=== PATIENT | male | born 1960 | race Caucasian/White ===

== ENCOUNTER → 2018-03-21 14:01 | Outpatient (CLI) | payer MEDICAID, SELFPAY ==
[2018-03-21 17:50] LABS: AST(SGOT) 25 U/L (15-37); Alanine Aminotransfer ALT/SGPT 42 U/L (16-61); Albumin, Serum 3.8 g/dL (3.2-5.0); Alkaline Phosphatase 98 U/L (45-117); Anion Gap 9 (5-15); BUN 14 mg/dL (7-18); BUN/Creat Ratio 16.4 RATIO (10-20); Calcium,Total 8.8 mg/dL (8.5-10.1); Chloride 101 mmol/L (98-107); Creatinine, Serum 0.86 mg/dL (0.70-1.30); EST Glomerular Filtration Rate 97 mL/min (>60); Est Glom Filt Rate - Afr Amer 118 mL/min (>60); Glucose 157 mg/dL (74-106); Magnesium 2.1 mg/dL (1.6-2.6); Potassium 4.2 mmol/L (3.5-5.1); Protein, Total 7.8 g/dL (6.4-8.2); Sodium Level 137 mmol/L (136-145); T4 Free Direct 1.12 ng/dL (0.76-1.46)
[2018-03-21 18:29] LABS: Absolute Lymphocyte Count 3.09 X10^3/ul (0.83-4.51); Absolute Neutrophil Count 3.8 X10^3/uL (2.0-7.7); Basophil# 0.02 X10^3/uL; Basophil% 0.3 % (0-1); Eosinophil# 0.12 X10^3/uL; Eosinophils% 1.5 % (0-5); Hematocrit 44.9 % (40-54); Hemoglobin 14.8 g/dl (13.0-16.5); Lymphocyte # 3.09 X10^3/ul (4.0); Lymphocyte % 39.3 % (19-41); Mean Corpuscular Hgb 30.5 pg (27.0-32.0); Mean Corpuscular Volume 92.4 fL (80-94); Mean Platelet Vol. 11.8 fl (6.2-12.0); Monocyte# 0.84 X10^3/uL; Monocyte% 10.7 % (0-10); Neutrophil # 3.75 X10^3/uL (2.7-7.7); Neutrophil % 47.7 % (47-70); Platelet Count 241 K/mm3 (150-450); RBC Distribution Width CV 13.2 % (11.6-14.6); RBC Distribution Width SD 43.9 fl (35.1-43.9); Red Blood Count 4.86 M/mm3 (4.6-6.2); White Blood Count 7.9 K/mm3 (4.4-11.0)
[2018-03-21 18:33] LABS: POSITIVE COUNT NO; POSITIVE DIFFERENTIAL NO; POSITIVE MORPHOLOGY NO
== END ==
PROVIDERS: Family Provider Family Medicine; PCP Family Medicine; Visit Provider Family Medicine
DX: E11.9 Type 2 diabetes mellitus without complications (principal); I10 Essential (primary) hypertension; I48.91 Unspecified atrial fibrillation
CPT/HCPCS: 36415; 80053; 83735; 84439; 84443; 85025

== ENCOUNTER → 2019-03-25 10:45 | Outpatient (CLI) | payer MEDICARE, SELFPAY ==
[2018-11-04 08:11] VITALS: BMI 41.3
[2019-03-25 12:34] LABS: Absolute Lymphocyte Count 3.05 X10^3/uL (0.83-4.51); Absolute Neutrophil Count 5.4 X10^3/uL (2.0-7.7); Basophil# 0.08 X10^3/uL; Basophil% 0.8 % (0-1); Eosinophil# 0.18 X10^3/uL; Eosinophils% 1.9 % (0-5); Hematocrit 42.7 % (40-54); Hemoglobin 14.1 g/dL (13.0-16.5); Lymphocyte # 3.05 X10^3/ul (4.0); Lymphocyte % 31.8 % (19-41); Mean Corpuscular Hgb 30.5 pg (27.0-32.0); Mean Corpuscular Volume 92.4 fL (80-94); Mean Platelet Vol. 11.1 fl (6.2-12.0); Monocyte# 0.78 X10^3/uL; Monocyte% 8.1 % (0-10); NRBC Flagged by Analyzer 0 % (0-5); Neutrophil # 5.39 X10^3/uL (2.7-7.7); Neutrophil % 56.3 % (47-70); Platelet Count 267 K/mm3 (150-450); RBC Distribution Width CV 12.2 % (11.6-14.6); RBC Distribution Width SD 41.2 fl (35.1-43.9); Red Blood Count 4.62 M/mm3 (4.6-6.2); White Blood Count 9.6 K/mm3 (4.4-11.0)
[2019-03-25 13:09] LABS: ALB/GLOB Ratio 0.8 RATIO (0.9-2.4); AST(SGOT) 26 U/L (15-37); Alanine Aminotransfer ALT/SGPT 31 U/L (16-61); Albumin, Serum 3.5 g/dL (3.2-5.0); Alkaline Phosphatase 93 U/L (45-117); Anion Gap 4 (5-15); BUN 13 mg/dL (7-18); BUN/Creat Ratio 15.5 RATIO (10-20); Calcium,Total 8.9 mg/dL (8.5-10.1); Chloride 105 mmol/L (98-107); Creatinine, Serum 0.84 mg/dL (0.70-1.30); EST Glomerular Filtration Rate 99 mL/min (>60); Est Glom Filt Rate - Afr Amer 120 mL/min (>60); Globulin 4.4 g/dL (2.2-4.2); Glucose 169 mg/dL (74-106); Protein, Total 7.9 g/dL (6.4-8.2); Sodium Level 138 mmol/L (136-145); Thyroid Stim Hormone (TSH) 1.09 uIU/mL (0.358-3.74)
== END ==
PROVIDERS: Family Provider Family Medicine; PCP Family Medicine; Visit Provider Family Medicine
DX: E11.65 Type 2 diabetes mellitus with hyperglycemia (principal); I10 Essential (primary) hypertension; R41.3 Other amnesia; I48.91 Unspecified atrial fibrillation
CPT/HCPCS: 36415; 80053; 83735; 84439; 84443; 85025

== ENCOUNTER 2019-09-23 11:06 | Emergency (ER) | payer MEDICARE, SELFPAY ==
[2018-11-04 08:11] VITALS: BMI 41.3
[2019-09-23 11:07] VITALS: BP 159/88; PULSE 68; RESP 16; TEMP 37.1; O2SAT 95; BMI 42.2
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
[2019-09-23 12:26] VITALS: PULSE 70; RESP 17
== END 2019-09-23 12:31 | disposition home or self-care (01) ==
PROVIDERS: Emergency Provider Emergency Medicine; PCP Family Medicine
DX: S16.1XXA Strain of muscle, fascia and tendon at neck level, initial encounter (principal); V89.2XXA Person injured in unspecified motor-vehicle accident, traffic, initial encounter; E11.9 Type 2 diabetes mellitus without complications; E78.5 Hyperlipidemia, unspecified; I10 Essential (primary) hypertension; Z87.891 Personal history of nicotine dependence; Z79.899 Other long term (current) drug therapy; Z79.84 Long term (current) use of oral hypoglycemic drugs
CPT/HCPCS: 70450; 72125; 99284

== ENCOUNTER 2020-01-20 22:59 | Emergency (ER) | payer MEDICARE, SELFPAY ==
[2020-01-20 23:00] VITALS: BP 149/87; PULSE 79; RESP 16; TEMP 36.3; O2SAT 96; BMI 38.4
--- NOTE | 2020-01-20 23:31 | EKG12_ITS ---
Test Reason : HYPOTENSION Blood Pressure : / mmHG Vent. Rate : 077 BPM Atrial Rate : 077 BPM P-R Int : 184 ms QRS Dur : 196 ms QT Int : 482 ms P-R-T Axes : 064 027 026 degrees QTc Int : 545 ms Sinus rhythm with Fusion complexes Right bundle branch block Abnormal ECG Confirmed by MP GAMEZ, SOPHIA ([id number]), editor [employer] BRUN[employer] ([id number]) on 01/25/2020 1:31:41 PM Referred By: ANAMARIA Confirmed By:SOPHIA GRESHAM MD
[2020-01-20] MEDS: 0.9% Normal Saline 1,000 ML 1000 ML IV (23:50)
[2020-01-20 23:51] VITALS: BP 123/84; BP 128/82; BP 130/79; PULSE 75; PULSE 77; PULSE 80
--- NOTE | 2020-01-21 | RAD_ITS ---
STUDY: X-RAY CHEST REASON FOR EXAM: Male, 59 years old. PT C/O HYPOTENSION X 14 DAYS AND BALANCE ISSUES. BP SINCE SATURDAY RUNNING 80/50''S. STOPPED BP MEDS TODAY WHEN PCP RN CHECKED BP -- DENIES ANY CHEST PAIN OR SOB TECHNIQUE: Ap and lateral COMPARISON: 12/17/2014. FINDINGS: The lungs are clear and expanded. There is no demonstrated pleural abnormality. Normal size heart. Normal mediastinum and viky. Normal visualized pulmonary arteries. Normal visualized aortic arch and descending thoracic aorta. Normal visualized thoracic spine. Normal visualized ribs, clavicles, and shoulders. There is no demonstrated abnormality of the visualized soft tissue structures of the upper abdomen. RAD/Chest PA and Lateral IMPRESSION: Negative x-ray examination of the chest. No interval change. Electronically Signed: Richar Sheehan, at 0:35 EDT Tel , Service support ,
[2020-01-21 00:04] LABS: Absolute Lymphocyte Count 7.18 X10^3/uL (0.83-4.51); Absolute Neutrophil Count 2.4 X10^3/uL (2.0-7.7); Basophil% 0.9 % (0-1); Eosinophil# 0.04 X10^3/uL; Eosinophils% 0.4 % (0-5); Hematocrit 37.5 % (40-54); Hemoglobin 12.7 g/dL (13.0-16.5); Lymphocyte # 7.18 X10^3/ul (4.0); Lymphocyte % 67.4 % (19-41); Mean Corp Hgb Conc 33.9 g/dL (32-36); Mean Corpuscular Hgb 30.6 pg (27.0-32.0); Mean Corpuscular Volume 90.4 fL (80-94); Mean Platelet Vol. 9.7 fl (6.2-12.0); Monocyte% 7.5 % (0-10); NRBC Flagged by Analyzer 0 % (0-5); Neutrophil # 2.41 X10^3/uL (2.7-7.7); Neutrophil % 22.7 % (47-70); POSITIVE DIFFERENTIAL YES; POSITIVE MORPHOLOGY YES; Platelet Count 256 K/mm3 (150-450); RBC Distribution Width CV 14.6 % (11.6-14.6); Red Blood Count 4.15 M/mm3 (4.6-6.2); White Blood Count 10.7 K/mm3 (4.4-11.0)
[2020-01-21 00:18] LABS: Differential Indicated SCAN CRITERIA MET
[2020-01-21 00:25] LABS: ALB/GLOB Ratio 0.7 RATIO (0.9-2.4); AST(SGOT) 32 U/L (15-37); Alanine Aminotransfer ALT/SGPT 38 U/L (16-61); Alkaline Phosphatase 84 U/L (45-117); Anion Gap 5 (5-15); BUN 14 mg/dL (7-18); BUN/Creat Ratio 15.5 RATIO (10-20); Calcium,Total 8.5 mg/dL (8.5-10.1); Chloride 103 mmol/L (98-107); EST Glomerular Filtration Rate 91 mL/min (>60); Est Glom Filt Rate - Afr Amer 110 mL/min (>60); Estimated Creatinine Clearance 87.28 ml/min; Globulin 4.3 g/dL (2.2-4.2); Glucose 170 mg/dL (74-106); Potassium 4.4 mmol/L (3.5-5.1); Protein, Total 7.3 g/dL (6.4-8.2); Sodium Level 135 mmol/L (136-145)
[2020-01-21 00:46] LABS: Atypical Lymphocyte 2+ %; Differential Comment SCANNED
[2020-01-21 01:00] VITALS: BP 134/82; PULSE 76; RESP 18; O2SAT 95
[2020-01-21 01:00] LABS: Color, Urine Yellow (Yellow); Glucose, Dipstick Normal (Normal); Ketone-Dipstick Negative (Negative); Leukocyte Esterase-Dipstick Negative /ul (Negative); Mucous, Urine 0 SEEN /hpf (<or=2+); Nitrite-Dipstick Negative (Negative); Occult Blood-Urine Negative /ul (Negative); Protein-Dipstick Negative (Negative); Red Blood Cells-Urine 0 SEEN /hpf (0-5); Specific Gravity, Urine 1.015 (1.002-1.030); Squamous Epithelial Cells - UA 0 SEEN /hpf (0-5); Urine Bilirubin Dipstick Negative (Negative); Urine Clarity Clear (Clear); Urine Urobilinogen 4 mg/dl (Normal); White Blood Cells 0 SEEN /hpf (0-5)
[2020-01-21 01:08] LABS: Bacteria RARE /hpf (None Seen)
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
[2020-01-21 03:18] VITALS: BP 120/70; PULSE 74; RESP 20; O2SAT 95
== END 2020-01-21 03:52 | disposition home or self-care (01) ==
PROVIDERS: Emergency Provider Emergency Medicine; PCP Family Medicine
DX: R42 Dizziness and giddiness (principal); R03.1 Nonspecific low blood-pressure reading; I45.10 Unspecified right bundle-branch block; I10 Essential (primary) hypertension; E78.5 Hyperlipidemia, unspecified; E11.9 Type 2 diabetes mellitus without complications
CPT/HCPCS: 71046; 80053; 81001; 84484; 85025; 93005; 96360; 99285; J7030

== ENCOUNTER → 2020-06-27 12:46 | Outpatient (CLI) | payer MEDICARE, SELFPAY ==
[2020-01-27 16:05] VITALS: BMI 39.5
== END ==
PROVIDERS: PCP Family Medicine; Referring Provider Internal Medicine Cardiovascular Disease; Visit Provider Internal Medicine Cardiovascular Disease
DX: I45.10 Unspecified right bundle-branch block (principal); I47.1 Supraventricular tachycardia; I48.0 Paroxysmal atrial fibrillation; R00.2 Palpitations
CPT/HCPCS: 93225; 93226

== ENCOUNTER → 2020-07-06 16:59 | Outpatient (CLI) | payer MEDICARE, SELFPAY ==
[2020-01-27 16:05] VITALS: BMI 39.5
[2020-07-06 17:58] LABS: Absolute Lymphocyte Count 4.29 X10^3/uL (0.83-4.51); Basophil# 0.03 X10^3/uL; Basophil% 0.4 % (0-1); Eosinophil# 0.08 X10^3/uL; Hematocrit 44.5 % (40-54); Hemoglobin 14.9 g/dL (13.0-16.5); Lymphocyte # 4.29 X10^3/ul (4.0); Lymphocyte % 53.1 % (19-41); Mean Corp Hgb Conc 33.5 g/dL (32-36); Mean Corpuscular Hgb 30.4 pg (27.0-32.0); Mean Corpuscular Volume 90.8 fL (80-94); Mean Platelet Vol. 10.6 fl (6.2-12.0); Monocyte# 0.69 X10^3/uL; Monocyte% 8.5 % (0-10); NRBC Flagged by Analyzer 0 % (0-5); Neutrophil # 2.95 X10^3/uL (2.7-7.7); Neutrophil % 36.5 % (47-70); Platelet Count 276 K/mm3 (150-450); RBC Distribution Width CV 12.8 % (11.6-14.6); RBC Distribution Width SD 42.1 fl (35.1-43.9); White Blood Count 8.1 K/mm3 (4.4-11.0)
[2020-07-06 18:50] LABS: AST(SGOT) 24 U/L (15-37); Alanine Aminotransfer ALT/SGPT 38 U/L (16-61); Albumin, Serum 3.9 g/dL (3.2-5.0); Alkaline Phosphatase 87 U/L (45-117); Anion Gap 6 (5-15); BUN 13 mg/dL (7-18); Calcium,Total 9.2 mg/dL (8.5-10.1); Chloride 103 mmol/L (98-107); Creatinine, Serum 0.93 mg/dL (0.70-1.30); EST Glomerular Filtration Rate 88 mL/min (>60); Est Glom Filt Rate - Afr Amer 106 mL/min (>60); Ferritin 143 ng/mL (26-388); Glucose 232 mg/dL (74-106); Iron 120 ug/dL (65-175); Magnesium 1.9 mg/dL (1.6-2.6); Potassium 4.4 mmol/L (3.5-5.1); Protein, Total 7.9 g/dL (6.4-8.2); Sodium Level 138 mmol/L (136-145); Thyroid Stim Hormone (TSH) 1.62 uIU/mL (0.358-3.74)
== END ==
PROVIDERS: PCP Family Medicine; Referring Provider Family Medicine; Visit Provider Family Medicine
DX: F43.23 Adjustment disorder with mixed anxiety and depressed mood (principal); E11.9 Type 2 diabetes mellitus without complications; I10 Essential (primary) hypertension; D64.9 Anemia, unspecified; I49.3 Ventricular premature depolarization
CPT/HCPCS: 36415; 80053; 82728; 83540; 83735; 84443; 85025

== ENCOUNTER → 2020-09-19 06:02 | Outpatient (CLI) | payer MEDICARE, SELFPAY ==
[2020-09-07 14:15] VITALS: BMI 40.4
--- NOTE | 2020-09-19 09:24 | STRESSREP ---
Stress Test Report Exercise myocardial perfusion stress test. 60-year-old man with a history of previous known coronary artery disease. Stress protocol: Resting EKG demonstrates normal sinus rhythm with a rate of 78 bpm and the right bundle branch block. Resting blood pressures 140/88 mmHg. The patient exercised according to the regular Mauro protocol for a total duration of 4 minutes and 30 seconds. The maximum heart rate attained was 144 bpm which was 90% of maximum predicted heart rate the maximum workload was 6.4 metabolic equivalents. Patient maintained sinus rhythm throughout the recording. At rest there were no ST or T wave changes noted to suggest ischemia and at peak exercise upsloping ST changes only were noted which did not meet the criteria for ischemia. Myocardial perfusion protocol. 14.4 mCi of technetium 99m sestamibi was injected at rest. The patient exercised for 4-1/2 minutes and at peak exercise 44.8 mCi of technetium 99m sestamibi was injected stress images were obtained. Stress and rest images were reconstructed and compared in the short axis vertical long and horizontal long axis. Gated images were also obtained. Perfusion SPECT analysis: Review of the stress images demonstrate mild perfusion abnormality noted towards the apex on the stress and the resting images. The resting images similarly demonstrate a perfusion defect. The above may be suggestive of a previous apical infarct. The rest of the trevino appear to be well perfused on the stress and resting images. The gated ejection fraction is 63%. Conclusion: Exercise myocardial perfusion stress test with no evidence of ischemia at a moderate workload. Previous apical infarct cannot be excluded. Preserved ejection fraction
== END ==
PROVIDERS: PCP Family Medicine; Referring Provider Nurse Practitioner Family; Visit Provider Nurse Practitioner Family
DX: R06.00 Dyspnea, unspecified (principal); R53.83 Other fatigue; I48.0 Paroxysmal atrial fibrillation; Z51.81 Encounter for therapeutic drug level monitoring; Z79.899 Other long term (current) drug therapy
CPT/HCPCS: 78452; 93017; A9500; A4216

== ENCOUNTER 2021-02-15 21:57 | Observation (INO) | payer MEDICARE, SELFPAY ==
[2021-02-15 21:58] VITALS: BP 193/103; PULSE 80; RESP 18; TEMP 36.6; O2SAT 96; BMI 38.4
[2021-02-15 22:58] VITALS: BP 172/92; PULSE 75; RESP 19; O2SAT 94
--- NOTE | 2021-02-15 23:03 | EDS_ITS ---
HPI History of Present Illness Chief Complaint: Palpitations Informant: patient and family Narrative Narrative: 60-year-old male with a history of diabetes fibrillation presenting to the emergency department the chief complaint of fatigue. He states that earlier in the day the bottoms of his feet were burning. He states that went away but his heart rate at that time then increased to the 90s and his arms felt heavy. States that he walked down the hallway he would lean towards the right and would run into the wall. Noted a right-sided headache. He was wondering if he was having atrial fibrillation. His 1 year ago and he has not been checking his blood pressures or his sugar since that time. He was seen in the layout technician office in December and noted to be hypertensive. Patient notes that his arms feel significantly heavy. He feels very tired. His son states that his speech seems off compared to normal. Patient and his son cannot tell me when his speech changed. [facility] Medical History Bipolar disorder Chronic coronary artery disease Depression Diabetes Dyspnea on exertion Essential (primary) hypertension Hematuria Hyperlipidemia Obesity Paroxysmal atrial fibrillation Paroxysmal supraventricular tachycardia Right bundle branch block (RBBB) Sebaceous cyst TIA (transient ischemic attack) Home Medications nabumetone 750 mg tablet 750 mg PO DAILY PRN 10/22/17 [History Last Taken Unknown] metformin 500 mg tablet 500 mg PO BID #60 tab 10/28/18 [History Last Taken Unknown] pantoprazole 20 mg PO DAILY 01/20/20 [History Last Taken Unknown] flecainide 150 mg tablet 150 mg PO Q12H #60 tab 07/06/20 [Rx Last Taken Unknown] metoprolol tartrate 50 mg tablet 75 mg PO BID #270 tab 02/06/21 [Rx Last Taken Unknown] Allergy/AdvReac Type Severity Reaction Status Date / Time adhesive tape Allergy Severe Blisters Verified 12/22/20 14:45 meperidine Allergy Unknown Verified 12/22/20 14:45 amitriptyline AdvReac Severe fatigue Verified 12/22/20 14:45 pneumococcal vaccine AdvReac Severe Dizziness, Verified 12/22/20 14:45 [From Pneumovax 23] N/V ketoconazole AdvReac Unknown Unknown Verified 12/22/20 14:45 atorvastatin AdvReac dizzy, Verified 12/22/20 14:45 joint pain pantoprazole AdvReac dizziness Verified 12/22/20 14:45 influenza vacine Allergy Severe Dizziness, Uncoded 01/27/20 16:05 N/V Family History Sister Hypertension Father Cardiomegaly Pericarditis Surgical History History of radiofrequency ablation procedure for cardiac arrhythmia (09/19/09) Social History Smoking Status: Former smoker alcohol intake: never substance use type: does not use ROS ROS ED ROS Narrative Bilateral arm heaviness Constitutional Constitutional ED: Denies chills or weight loss Eyes Eyes: Denies change in vision or diplopia ENT ENT ED: Denies ear pain, rhinorrhea or sore throat Cardiovascular Cardiovascular: Reports palpitations; Denies chest pain, orthopnea or racing heartbeat Respiratory/Chest Respiratory/Chest: Denies cough, dyspnea or orthopnea Gastrointestinal Gastrointestinal: Denies abdominal pain, diarrhea, nausea or vomiting Genitourinary Genitourinary ED: Denies dysuria, hematuria or urinary frequency Musculoskeletal Musculoskeletal: Reports other Details: Bilateral plantar pain ; Denies arthralgias or myalgias Integumentary Denies abscess or rash Neurologic Neurologic: Reports headache(s); Denies weakness Psychiatric Psychiatric: Denies anxiety, depression, suicidal ideation or suicidal thoughts Endocrine Endocrinology: Denies polydipsia, polyphagia or polyuria Allergic/Immunologic Allergic/Immunologic ED: Denies mouth swelling, tongue swelling or urticaria EXAM Physical Exam Const Vital Signs: 02/15/21 21:58 02/15/21 22:52 02/15/21 22:58 Temperature 98 F Temperature Source Temporal Pulse Rate 80 75 Respiratory Rate 18 19 H Respiratory Effort Normal Respiratory Pattern Normal Blood Pressure 193/103 H 172/92 H Blood Pressure Mean 133 118 Pulse Ox 96 94 Oxygen Delivery Method Room Air Room Air 02/15/21 23:10 02/16/21 00:26 Temperature Temperature Source Pulse Rate 78 71 Respiratory Rate 18 18 Respiratory Effort Respiratory Pattern Blood Pressure 173/112 H 142/87 H Blood Pressure Mean 132 105 Pulse Ox 92 92 Oxygen Delivery Method Room Air Room Air Positive well nourished and well developed General Appearance ED: well developed HEENT Reports normocephalic, head/scalp atraumatic and moist mucous membranes Eyes PERRL and EOMs intact bilaterally Neck no lymphadenopathy, supple and no JVD Resp normal respiratory effort and clear to auscultation bilaterally Cardio regular rate, regular rhythm and no murmurs GI normal to inspection, nondistended, normoactive bowel sounds and non-tender Palpation: soft Back/Spine no CVA tenderness and normal ROM Extremity normal to inspection General Extremety ED: Negative for edema General Extremity: Negative for edema Neuro oriented x3 and CN's II-XII intact bilaterally Neuro Narrative: NIH is 1 for dysarthria. Sensorium / Orientation: alert Motor Exam: strength 5/5 throughout Psych mental status grossly normal Mood & Affect: Negative for depressed or tearful Skin no rashes or lesions noted and no wounds MDM MDM MDM Narrative Medical decision making narrative: Basic blood work showed normal troponin blood sugar of 271. My interpretation of the chest x-ray is no acute process. CT the brain was negative. He is remained in a sinus rhythm on the monitor. Patient appears to have uncontrolled diabetes and hypertension. The burning in the feet may be the beginning of diabetic neuropathy. Unfortunately the patient's a year ago when she was the primary person who was measuring his blood sugars and his blood pressure. Patient now is presenting with headache and dysarthria. His speech is definitely different from baseline per the son but unfortunately nobody can tell me exactly when that began. Therefore he is not a TPA candidate. Given his history of paroxysmal A. fib he is certain ly at risk for stroke but he is not anticoagulated due to prior GI bleeding. At this point I feel the best course is to have the patient admitted to the hospital. He is agreeable to this. Lab Data Attestation: I reviewed the patient's lab results. Labs: Laboratory Results - last 24 hr 02/15/21 02/15/21 02/15/21 22:56 23:00 23:00 WBC 8.2 RBC 4.90 Hgb 15.3 Hct 43.0 MCV 87.8 MCH 31.2 MCHC 35.6 RDW Std Deviation 39.7 RDW Coeff of Hermilo 12.2 Plt Count 263 MPV 11.4 Immature Gran % (Auto) 1.100 H Neut % (Auto) 40.7 L Lymph % (Auto) 46.6 H [place] % (Auto) 9.8 Eos % (Auto) 1.2 Baso % (Auto) 0.6 Absolute Neuts (auto) 3.3 Absolute Lymphs (auto) 3.81 Nucleated RBC % 0 PT 12.1 INR 1.0 APTT 27.1 Sodium Potassium Chloride Carbon Dioxide Anion Gap BUN Creatinine Estim Creat Clear Calc Est GFR (MDRD) Af Amer Est GFR (MDRD) Non-Af BUN/Creatinine Ratio Glucose Calcium Total Bilirubin AST ALT Alkaline Phosphatase Troponin I High Sens Total Protein Albumin Globulin Albumin/Globulin Ratio POC Glucose 280 H 02/15/21 23:00 WBC RBC Hgb Hct MCV MCH MCHC RDW Std Deviation RDW Coeff of Hermilo Plt Count MPV Immature Gran % (Auto) Neut % (Auto) Lymph % (Auto) [place] % (Auto) Eos % (Auto) Baso % (Auto) Absolute Neuts (auto) Absolute Lymphs (auto) Nucleated RBC % PT INR APTT Sodium 133 L Potassium 4.5 Chloride 101 Carbon Dioxide 25.0 Anion Gap 7 BUN 10 Creatinine 1.13 Estim Creat Clear Calc 68.65 Est GFR (MDRD) Af Amer 85 Est GFR (MDRD) Non-Af 70 BUN/Creatinine Ratio 8.8 L Glucose 271 H Calcium 8.3 L Total Bilirubin 0.50 AST 39 H ALT 42 Alkaline Phosphatase 110 Troponin I High Sens 6 Total Protein 8.1 Albumin 3.6 Globulin 4.5 H Albumin/Globulin Ratio 0.8 L POC Glucose Radiography Diagnostic Testing: Clinical Impression(s) from Imaging Studies Brain CT 02/15/21 23:06 IMPRESSION: Normal unenhanced CT scan of the brain. Acute left maxillary sinusitis Electronically Signed: Dionisio Cartwright DO at 0:19 EDT Tel , Service support , Chest X-Ray 02/15/21 23:25 IMPRESSION: Normal x-ray examination of the chest. Electronically Signed: Dionisio Cartwright DO at 23:42 EDT Tel , Service support , EKG Initial EKG: Attestation: I personally reviewed and interpreted this EKG as follows: Comments: Sinus rhythm with a ventricular rate of 78 bpm with known right bundle branch block Discharge Plan Dx/Rx/DC Orders Clinical Impression: Uncontrolled diabetes mellitus, Hypertension, Dysarthria Disposition Disposition: Acute Care Hospital [facility]
[2021-02-15 23:05] LABS: Bedside Glucose 280 mg/dL (70-110)
--- NOTE | 2021-02-15 23:06 | CT_ITS ---
STUDY: CT BRAIN WITHOUT CONTRAST REASON FOR EXAM: Male, 60 years old. Headache RADIATION DOSAGE (If Supplied By Facility): CTDIvol = ( 44.99 ) mGy, DLP = ( 829.85 ) mGycm TECHNIQUE: Transaxial CT imaging of the brain was performed without administration of intravenous contrast material. Individualized dose optimization techniques were used for this CT. COMPARISON: No relevant priors. FINDINGS: Normal soft tissue structures. Normal calvarium. Normal size ventricles and extra-axial spaces for the patient''s age. Normal white matter tracts of the cerebral hemispheres. Normal basal ganglia and thalami. Normal brainstem. Normal cerebellum. There is no intracranial hemorrhage. There are no findings of an acute ischemic infarction. Acute left maxillary sinusitis CT/Brain/Head without Contrast IMPRESSION: Normal unenhanced CT scan of the brain. Acute left maxillary sinusitis Electronically Signed: Dionisio Cartwright DO at 0:19 EDT Tel , Service support ,
--- NOTE | 2021-02-15 23:07 | EKG12_ITS ---
Test Reason : AFIB/SOB Blood Pressure : / mmHG Vent. Rate : 078 BPM Atrial Rate : 078 BPM P-R Int : 180 ms QRS Dur : 180 ms QT Int : 476 ms P-R-T Axes : 034 -41 019 degrees QTc Int : 542 ms Normal sinus rhythm Left axis deviation Right bundle branch block Abnormal ECG Confirmed by MP GAMEZ, SOPHIA ([id number]), newspaper copy editor BRUNO MAIN ([id number]) on 02/21/2021 6:38:46 AM Referred By: MICHEL NIETO Confirmed By:SOPHIA GRESHAM MD
[2021-02-15 23:10] VITALS: BP 173/112; PULSE 78; RESP 18; O2SAT 92
--- NOTE | 2021-02-15 23:25 | RAD_ITS ---
STUDY: X-RAY CHEST REASON FOR EXAM: Male, 60 years old. Palpitations TECHNIQUE: Single AP portable view of the chest. COMPARISON: 01/21/2020 FINDINGS: The lungs are clear and expanded. There is no demonstrated pleural abnormality. Normal size heart. Normal mediastinum and viky. Normal visualized pulmonary arteries. Normal visualized aortic arch and descending thoracic aorta. Normal visualized thoracic spine. Normal visualized ribs, clavicles, and shoulders. There is no demonstrated abnormality of the visualized soft tissue structures of the upper abdomen. RAD/Chest 1 View (Portable) IMPRESSION: Normal x-ray examination of the chest. Electronically Signed: Dionisio Cartwright DO at 23:42 EDT Tel , Service support ,
[2021-02-15 23:34] LABS: Absolute Lymphocyte Count 3.81 X10^3/uL (0.83-4.51); Absolute Neutrophil Count 3.3 X10^3/uL (2.0-7.7); Basophil# 0.05 X10^3/uL; Basophil% 0.6 % (0-1); Eosinophils% 1.2 % (0-5); Hemoglobin 15.3 g/dL (13.0-16.5); Lymphocyte # 3.81 X10^3/ul (0.83-4.51); Lymphocyte % 46.6 % (19-41); Mean Corp Hgb Conc 35.6 g/dL (32-36); Mean Corpuscular Hgb 31.2 pg (27.0-32.0); Mean Corpuscular Volume 87.8 fL (80-94); Mean Platelet Vol. 11.4 fl (6.2-12.0); Monocyte% 9.8 % (0-10); NRBC Flagged by Analyzer 0 % (0-5); Neutrophil # 3.32 X10^3/uL (2.7-7.7); Neutrophil % 40.7 % (47-70); Platelet Count 263 K/mm3 (150-450); RBC Distribution Width CV 12.2 % (11.6-14.6); RBC Distribution Width SD 39.7 fl (35.1-43.9); White Blood Count 8.2 K/mm3 (4.4-11.0)
[2021-02-15 23:37] LABS: Partial Thromboplast Time 27.1 Seconds (24.1-36.2); Prothrombin Time (Protime)PT. 12.1 SECONDS (11.7-14.9)
[2021-02-15 23:39] LABS: ALB/GLOB Ratio 0.8 RATIO (0.9-2.4); AST(SGOT) 39 U/L (15-37); Alanine Aminotransfer ALT/SGPT 42 U/L (16-61); Albumin, Serum 3.6 g/dL (3.2-5.0); Alkaline Phosphatase 110 U/L (45-117); Anion Gap 7 (5-15); BUN 10 mg/dL (7-18); BUN/Creat Ratio 8.8 RATIO (10-20); Calcium,Total 8.3 mg/dL (8.5-10.1); Chloride 101 mmol/L (98-107); Creatinine, Serum 1.13 mg/dL (0.70-1.30); EST Glomerular Filtration Rate 70 mL/min (>60); Est Glom Filt Rate - Afr Amer 85 mL/min (>60); Estimated Creatinine Clearance 68.65 ml/min; Globulin 4.5 g/dL (2.2-4.2); Glucose 271 mg/dL (74-106); Potassium 4.5 mmol/L (3.5-5.1); Protein, Total 8.1 g/dL (6.4-8.2); Sodium Level 133 mmol/L (136-145); Troponin-I HS 6 pg/mL (3.0-78.0)
[2021-02-16] VITALS (12 sets, daily range): BP systolic 104–168; BP diastolic 56–97; PULSE 68–81; RESP 16–18; TEMP 36.2–37.2; O2SAT 91–98; BMI 39.2
--- NOTE | 2021-02-16 01:21 | HP.PCM.HOS_ITS ---
HPI - General General Date of Admission: 02/16/21 Date of Service: 02/16/21 Chief Complaint: Strokelike symptoms HPI Narrative IRINA SALGADO, is a 60 M with a significant history of atrial fibrillation who presents to the emergency department with strokelike symptoms. Reportedly patient was having difficulty with his speech and his and he was leaning to the right side. His symptoms started on the day of presentation without a clear on set of the time. Also he reports a burning sensation in his bilateral feet. Further he reports elevated heart rate of 92 and a different feeling in his throat. He called cardiology on-call and was instructed to come to the emergency department. COVID-19 vaccination status: Of note patient has not been vaccinated against COVID-19. He reported because he is allergy to flu vaccine and pneumonia vaccination his PCP told him not to vaccinate. [facility] Medical History Bipolar disorder Chronic coronary artery disease Depression Diabetes Dyspnea on exertion Essential (primary) hypertension Hematuria Hyperlipidemia Obesity Paroxysmal atrial fibrillation Paroxysmal supraventricular tachycardia Right bundle branch block (RBBB) Sebaceous cyst TIA (transient ischemic attack) Home Medications nabumetone 750 mg tablet 750 mg PO DAILY PRN 10/22/17 [History Last Taken Unknown] metformin 500 mg tablet 500 mg PO BID #60 tab 10/28/18 [History Last Taken Unknown] pantoprazole 20 mg PO DAILY 01/20/20 [History Last Taken Unknown] flecainide 150 mg tablet 150 mg PO Q12H #60 tab 07/06/20 [Rx Last Taken Unknown] metoprolol tartrate 50 mg tablet 75 mg PO BID #270 tab 02/06/21 [Rx Last Taken Unknown] Allergy/AdvReac Type Severity Reaction Status Date / Time adhesive tape Allergy Severe Blisters Verified 12/22/20 14:45 meperidine Allergy Unknown Verified 12/22/20 14:45 amitriptyline AdvReac Severe fatigue Verified 12/22/20 14:45 pneumococcal vaccine AdvReac Severe Dizziness, Verified 12/22/20 14:45 [From Pneumovax 23] N/V ketoconazole AdvReac Unknown Unknown Verified 12/22/20 14:45 atorvastatin AdvReac dizzy, Verified 12/22/20 14:45 joint pain pantoprazole AdvReac dizziness Verified 12/22/20 14:45 influenza vacine Allergy Severe Dizziness, Uncoded 01/27/20 16:05 N/V Family History Sister Hypertension Father Cardiomegaly Pericarditis Surgical History History of radiofrequency ablation procedure for cardiac arrhythmia (09/19/09) Social History Smoking Status: Former smoker alcohol intake: never substance use type: does not use ROS ROS Narrative Constitutional: Denies fever, chills, fatigue, anorexia and change in weight Eyes: Denies blurry vision, change in eye color, change in vision, discharge from eye(s), double vision, erythema, eye pain, loss of vision or other HEENT: Denies abnormal hearing, dysphagia, ear pain, epistaxis, headache(s), hearing loss, nasal congestion, nasal discharge, post nasal drip, sinus pressure, sore throat or other Cardiovascular: Denies chest pain or palpitations. Denies dyspnea on exertion, orthopnea and paroxysmal nocturnal dyspnea Respiratory/Chest: Denies cough, excessive phlegm production, shortness of breath with exertion and wheezing Gastrointestinal: Denies abdominal pain, coffee ground emesis, constipation, diarrhea, dyspepsia, hematemesis, hematochezia, loose stools, melena, nausea, vomiting or other Genitourinary: Denies burning urination, difficulty urinating, dysuria, hematuria, nocturia, urinary frequency, urinary hesitancy, urinary incontinence, urinary urgency or other Musculoskeletal: Denies arthralgias, back pain, joint pain, joint stiffness, joint swelling, myalgias, neck pain or other Neurologic: Reports abnormal gait and abnormal speech. Reports burning sensation in bilateral feet. Denies seizure-like activity, syncope, tremor(s) or other Psychiatric: Denies anxiety, depression, homicidal ideation, suicidal ideation or other Endocrinology: Denies change in body appearance, cold intolerance, excessive sweating, heat intolerance, polydipsia, polyuria or other Hematologic/Lymphatic: Denies anemia, easy bleeding, easy bruising, lymphadenopathy or other Integumentary: Denies rashes Allergic/Immunologic: Denies rhinitis, hives, eczema, asthma or other Vital Signs Vital Signs Vital Signs: 02/15/21 21:58 02/15/21 22:52 02/15/21 22:58 Temperature 98 F Temperature Source Temporal Pulse Rate 80 75 Respiratory Rate 18 19 H Respiratory Effort Normal Respiratory Pattern Normal Blood Pressure 193/103 H 172/92 H Blood Pressure Mean 133 118 Pulse Ox 96 94 Oxygen Delivery Method Room Air Room Air 02/15/21 23:10 02/16/21 00:26 Temperature Temperature Source Pulse Rate 78 71 Respiratory Rate 18 18 Respiratory Effort Respiratory Pattern Blood Pressure 173/112 H 142/87 H Blood Pressure Mean 132 105 Pulse Ox 92 92 Oxygen Delivery Method Room Air Room Air Weight Weight: 117.934 kg Body Mass Index (BMI) 38.4 Physical Exam Narrative Physical exam: General: Well-nourished, well-developed. Head: Normocephalic, atraumatic, no tenderness Eyes: PERRLA, EOMI ENT, no trauma, moist mucous membranes, no rhinorrhea Neck: Nontender, full range of motion, no spinal tenderness, deformities, step- off CVS: Regular rate and rhythm. S1-S2 present. No murmur, gallop or rub. Respiratory : clear to auscultation bilaterally, chest wall nontender, no wheezing Abdomen: Soft, nontender, nondistended, normal bowel sounds, no masses : Deferred Back: Nontender, no CVA tenderness, no midline spinal tenderness, deformities, step-offs Extremities: Nontender full range of motion, no trauma Skin: Normal color, no trauma, abrasions Neuro: Alert, oriented, cranial nerves II through XII grossly intact. No dysmetria. Strength 5 out of 5 in all 4 extremities. Deep tendon reflexes not hyperreflexia throughout. Psychiatry: Normal mood. Normal affect. Not depressed. Not anxious. Results Lab / Micro Data Result Diagrams: 02/15/21 23:00 02/15/21 23:00 Labs: Laboratory Results - last 24 hr 02/15/21 22:56: POC Glucose 280 H 02/15/21 23:00: WBC 8.2, RBC 4.90, Hgb 15.3, Hct 43.0, MCV 87.8, MCH 31.2, MCHC 35.6, RDW Std Deviation 39.7, RDW Coeff of Hermilo 12.2, Plt Count 263, MPV 11.4, Immature Gran % (Auto) 1.100 H, Neut % (Auto) 40.7 L, Lymph % (Auto) 46.6 H, [place] % (Auto) 9.8, Eos % (Auto) 1.2, Baso % (Auto) 0.6, Absolute Neuts (auto) 3.3, Absolute Lymphs (auto) 3.81, Nucleated RBC % 0 02/15/21 23:00: PT 12.1, INR 1.0, APTT 27.1 02/15/21 23:00: Sodium 133 L, Potassium 4.5, Chloride 101, Carbon Dioxide 25.0, Anion Gap 7, BUN 10, Creatinine 1.13, Estim Creat Clear Calc 68.65, Est GFR (MDRD) Af Amer 85, Est GFR (MDRD) Non-Af 70, BUN/Creatinine Ratio 8.8 L, Glucose 271 H, Calcium 8.3 L, Total Bilirubin 0.50, AST 39 H, ALT 42, Alkaline Phospha tase 110, Troponin I High Sens 6, Total Protein 8.1, Albumin 3.6, Globulin 4.5 H , Albumin/Globulin Ratio 0.8 L Radiology Impression Brain CT 02/15/21 23:06 IMPRESSION: Normal unenhanced CT scan of the brain. Acute left maxillary sinusitis Electronically Signed: Dionisio Cartwright DO at 0:19 EDT Tel , Service support , Chest X-Ray 02/15/21 23:25 IMPRESSION: Normal x-ray examination of the chest. Electronically Signed: Dionisio Cartwright DO at 23:42 EDT Tel , Service support , Assessment & Plan Assessment/Plan (1) Stroke-like symptoms: (2) Uncontrolled diabetes mellitus: QUALIFIERS: Diabetes mellitus type: type 2 Glycemic state: with hyperglycemia Qualified Code(s): E11.65 - Type 2 diabetes mellitus with hyperglycemia PLAN: Strokelike symptom Serial NINDS NIH Scale ordered CT head was independently interpreted and I agree radiologist interpretation as above. Lipid profile and A1c ordered. Physical therapy, occupational therapy and speech therapy to work with patient. N.p.o. until bedside swallow eval. Patient reports history of internal bleeding for which reason he was told to take aspirin. Aspirin not ordered at this time. Also patient reports allergy to statins. Statin was ordered at this time. Permissive hypertension. Control blood pressure with labetalol for systolic blood pressure of more than 220 or diastolic blood pressure of more than 120. MRI/MRAM of head; brain; and neck. Echocardiogram ordered. History of atrial fibrillation Stable Continue home medications. Not a candidate of anticoagulation because of history of bleeding (?bladder) Diabetes mellitus with neuropathy. Patient with hyperglycemia on presentation Hold home Metformin. Basal insulin ordered. Accu-Chek QA [facility] with correction scale insulin ordered. DVT prophylaxis: SCD ordered. Charges/Coding Visit Charges OBSV E&M: 37243 Initial observation care L2
[2021-02-16 01:55] LABS: Troponin-I HS 9 pg/mL (3.0-78.0)
--- NOTE | 2021-02-16 02:39 | MRI_ITS ---
STUDY: MRA NECK WITHOUT CONTRAST REASON FOR EXAM: Male, 60 years old. cva, speech difficulty, leaning to right side TECHNIQUE: Source images were obtained, MIPs were performed. The study was performed unenhanced. COMPARISON: CTA 12/17/2014 FINDINGS: RIGHT CAROTID ARTERIES: Normal right common carotid artery (CCA). Normal right common carotid bulb. Normal origin of the right internal carotid (ICA) artery without a hemodynamically significant stenosis. Normal visualized cervical portion of the right internal carotid artery. Normal origin of the right external carotid artery (ECA). LEFT CAROTID ARTERIES: Normal left common carotid artery (CCA). Normal left common carotid bulb. Normal origin of the left internal carotid (ICA) artery without a hemodynamically significant stenosis. Normal visualized cervical portion of the left internal carotid artery. Normal origin of the left external carotid artery (ECA). VERTEBRAL ARTERIES: Normal antegrade flow within the bilateral vertebral artery without a hemodynamically significant stenosis. MRI/MRA Neck without Contrast IMPRESSION: Normal bilateral cervical carotid and vertebral arteries. Electronically Signed: Francois Miller MD at 13:52 EDT Tel , Service support ,
--- NOTE | 2021-02-16 02:39 | MRI_ITS ---
STUDY: MRA OF THE HEAD WITHOUT CONTRAST REASON FOR EXAM: Male, 60 years old. cva, speech difficulty, leaning to right side TECHNIQUE: 3-D [id number] (TOF) imaging was performed with MIPs. The study was performed unenhanced. COMPARISON: CT 12/17/2014 FINDINGS: Normal bilateral petrous carotid arteries. Normal right cavernous carotid artery with a normal supraclinoid bifurcation. Normal left cavernous carotid artery with a normal supraclinoid bifurcation. Normal right A1 segments of the anterior cerebral artery. Normal left A1 segments of the anterior cerebral artery. Normal intact anterior communicating artery (ACOM). Normal bilateral A2 segments of the anterior cerebral arteries. Normal right M1 and M2 segments of the middle cerebral arteries, with a normal M1 bifurcation. Normal left M1 and M2 segments of the middle cerebral arteries, with a normal M1 bifurcation. Normal right posterior communicating artery (PCOM). Normal left posterior communicating artery (PCOM). Normal bilateral vertebral arteries. Normal basilar artery with a normal basilar bifurcation. The visualized bilateral superior cerebellar (SCA) arteries are normal. Normal bilateral P1, P2 and visualized P3 segments of the posterior cerebral arteries. There is no demonstrated aneurysm of the [place] of Street. There is no major vessel occlusion or hemodynamically significant stenosis. There is no demonstrated abnormality of the visualized brain. MRI/MRA Head ONLY without Contrast IMPRESSION: Normal MRA of the head Electronically Signed: Francois Miller MD at 13:52 EDT Tel , Service support ,
--- NOTE | 2021-02-16 02:39 | ECHOCS_ITS ---
Reason For Study: TIA/CVA Procedure This was a 2D Doppler, Color Flow transthoracic echocardiogram. The study was technically difficult. Contrast injection was performed. Exam performed portable in patient room. Left Ventricle Normal left ventricle. The estimated ejection fraction is EF 55-60 %. Right Ventricle Normal right ventricle. Normal systolic function. Atria The left atrium is mildly enlarged. Normal right atrium. Mitral Valve There is mild mitral annular calcification. Trivial mitral valve insufficiency. Tricuspid Valve Normal tricuspid valve. Trivial tricuspid valve insufficiency. Aortic Valve Normal aortic valve. Pulmonic Valve The pulmonic valve is not well visualized. Pericardium/Pleural No pericardial effusion. Medication Diluted definity 4.0ml given slow IV push to enhance endocardial definition. HX PFO W/ POSITIVE RT TO LT SHUNT - 01/2009. MMode/2D Measurements & Calculations LVIDd: 5.0 cm IVSd: 1.2 cm Ao root diam: 3.7 cm LVIDs: 3.2 cm LVPWd: 1.1 cm RVDd: 3.9 cm FS: 35.7 % LAV(MOD-bp): 38.2 ml LVAd ap4: 41.3 cm2 SV(MOD-sp4): 96.4 ml LAV(MOD-bp) Indexed: 16.4 ml/m2 LVLd ap4: 8.9 cm LAV(MOD-sp2): 47.7 ml EDV(MOD-sp4): 159.5 ml LAV(MOD-sp4): 30.2 ml EDV(sp4-el): 162.1 ml LVAs ap4: 22.3 cm2 LVLs ap4: 6.5 cm ESV(MOD-sp4): 63.2 ml ESV(sp4-el): 65.6 ml EF(MOD-sp4): 60.4 % EF(sp4-el): 59.5 % SV(sp4-el): 96.5 ml LA A4 area: 15.5 cm2 LA dimension(2D): 3.8 cm RA A4 area: 15.8 cm2 Time Measurements MV dec time: 0.25 sec Doppler Measurements & Calculations MV E max murtaza: 51.0 cm/sec Lat Peak E' Murtaza: 6.8 cm/sec Med Peak E' Murtaza: 5.4 cm/sec MV A max murtaza: 64.6 cm/sec E/E' lat: 7.5 E/E' med: 9.4 MV E/A: 0.79 Ao V2 max: 129.1 cm/sec LV V1 max: 102.7 cm/sec PA V2 max: 97.1 cm/sec Ao max P.7 mmHg LV V1 max P.2 mmHg PI end-d murtaza: 105.2 cm/sec TR max murtaza: 222.4 cm/sec TR max P.8 mmHg ECHO/Echo Complete W/ Contrast Interpretation Summary The estimated ejection fraction is EF 55-60 %. Normal LV systolic function. Ordering Physician: Rinku Daniels Referring Physician: MALIHA PENA Performed By: Patricia Combs, YAMILKA, RVT
--- NOTE | 2021-02-16 02:39 | MRI_ITS ---
STUDY: MRI BRAIN WITHOUT CONTRAST REASON FOR EXAM: Male, 60 years old. cva, speech difficulty, leaning to right side TECHNIQUE: Standardized multiplanar fat and water weighted pulse sequences were obtained. COMPARISON: CT 02/15/2021, MRI 12/17/2014 FINDINGS: There is mild cerebral atrophy with widening of the extra-axial spaces and ventricular dilatation. There are a limited number of small white matter hyperintensities, distributed throughout the deep white matter tracts of the cerebral hemispheres, consistent with mild chronic white matter ischemic changes. There is no evidence for recent intracranial ischemia or other cause of cytotoxic edema on diffusion weighted imaging (DWI). Normal T2* images of the brain without demonstrated susceptibility artifact. There is no demonstrated hemosiderin stain. Normal bilateral basal ganglia. Normal thalami. There is no extra-axial fluid accumulation. Normal flow voids within the major intracranial circulation suggesting patency by spin echo criteria. Normal sella turcica, pituitary gland, infundibular stalk, optic chiasm and hypothalamus. Normal tectal plate and pineal gland. Normal midbrain, pilar and medulla. Normal cerebellum. Normal basal cisterns. Normal bilateral temporal bones. Normal bilateral internal auditory canals. No demonstrated orbital abnormality, within the constraints of a routine brain study. Mucosal thickening the trevino of the left maxillary sinus consistent with chronic sinusitis. Normal calvarium and skull base. Normal visualized soft tissue structures. Normal visualized upper cervical spine. MRI/Brain without Contrast IMPRESSION: Involutional changes of the brain, as described above. No acute infarct. Electronically Signed: Francois Miller MD at 13:50 EDT Tel , Service support ,
--- NOTE | 2021-02-16 02:42 | PCS.PANDOC ---
PANDEMIC DOCUMENTATION INITIATED: Date: 12/19/2020 Time: 190
[2021-02-16 05:40] LABS: Absolute Lymphocyte Count 4.64 X10^3/uL (0.83-4.51); Absolute Neutrophil Count 2.7 X10^3/uL (2.0-7.7); Basophil# 0.05 X10^3/uL; Basophil% 0.6 % (0-1); Eosinophil# 0.18 X10^3/uL; Eosinophils% 2.2 % (0-5); Hematocrit 43.1 % (40-54); Hemoglobin 14.6 g/dL (13.0-16.5); Lymphocyte # 4.64 X10^3/ul (0.83-4.51); Lymphocyte % 55.9 % (19-41); Mean Corp Hgb Conc 33.9 g/dL (32-36); Mean Corpuscular Hgb 30.4 pg (27.0-32.0); Mean Corpuscular Volume 89.6 fL (80-94); Mean Platelet Vol. 10.8 fl (6.2-12.0); Monocyte% 8.4 % (0-10); NRBC Flagged by Analyzer 0 % (0-5); Neutrophil # 2.68 X10^3/uL (2.7-7.7); Neutrophil % 32.3 % (47-70); Platelet Count 246 K/mm3 (150-450); RBC Distribution Width CV 12.3 % (11.6-14.6); RBC Distribution Width SD 40.7 fl (35.1-43.9); Red Blood Count 4.81 M/mm3 (4.6-6.2); White Blood Count 8.3 K/mm3 (4.4-11.0)
[2021-02-16 06:04] LABS: Anion Gap 5 (5-15); BUN 8 mg/dL (7-18); BUN/Creat Ratio 8.3 RATIO (10-20); Calcium,Total 8.7 mg/dL (8.5-10.1); Chloride 102 mmol/L (98-107); Cholesterol 156 mg/dL (200); Creatinine, Serum 0.97 mg/dL (0.70-1.30); EST Glomerular Filtration Rate 84 mL/min (>60); Est Glom Filt Rate - Afr Amer 101 mL/min (>60); Estimated Creatinine Clearance 79.97 ml/min; Glucose 217 mg/dL (74-106); High Density Lipoprotein 32 mg/dL; Sodium Level 138 mmol/L (136-145); Triglycerides 472 mg/dL
[2021-02-16 06:50] LABS: Bedside Glucose 215 mg/dL (70-110)
[2021-02-16] MEDS: Insulin Lispro 100 UNIT/ML INSULN.PEN SC ×2 (06:55→15:06)
[2021-02-16 08:13] LABS: Hemoglobin A1c 9.2 % (3.8-5.6)
[2021-02-16] MEDS: 0.9% Saline Lock 10 ML Syringe IV (09:45)
[2021-02-16] MEDS: Morphine 2 MG/ML Syringe IV (09:45)
[2021-02-16 11:51] LABS: Bedside Glucose 270 mg/dL (70-110)
--- NOTE | 2021-02-16 11:51 | NURSING ---
Pt off floor for testing, unable to complete NIH on time. Completed upon return to floor.
--- NOTE | 2021-02-16 14:15 | CASEMGMT ---
Therapy told SW patient should go somewhere for rehab. SW met with patient, introduced self and role at [facility]. SW explained to him that therapy is recommending he go somewhere short term for rehab. He said he doesn't really want to go anywhere. SW asked if he lives alone and he said he does, but he has people that live nearby that can help him. SW provided patient with a list of SNF providers including quality and resource use data and consistent with the patient?s preferred geographic region, medical needs, and insurance network. SW told him that SW is going to leave the list in his room so he can think about it since it is being recommended. Kathia Tejada [employer]AT DOCK OPERATOR [employer]
[2021-02-16] MEDS: Flecainide 150 MG Tablet PO (15:08)
--- NOTE | 2021-02-16 15:43 | SP.MBSS_ITS ---
Modified Barium Swallow - Patient Information Study Date: 02/16/21 Study Time: 14:30 Direct Billable Minutes: 120 Total Minutes procedure & reportin Diagnosis: Suspected CVA Referring Physician: Arvind Mata Reason for Referral: Suspected dysphagia Medical History: PMH: Bipolar disorder, Chronic coronary artery disease, Depression, Diabetes, Dyspnea on exertion, Essential (primary) hypertension, Hematuria, Hyperlipidemia, Obesity, Paroxysmal atrial fibrillation, Paroxysmal supraventricular tachycardia, Right bundle branch block (RBBB), Sebaceous cyst, TIA (transient ischemic attack) IRINA SALGADO: 60-year-old male with a history of diabetes fibrillation presenting to the emergency department the chief complaint of fatigue. He states that earlier in the day the bottoms of his feet were burning. He states that went away but his heart rate at that time then increased to the 90s and his arms felt heavy. States that he walked down the hallway he would lean towards the right and would run into the wall. Noted a right-sided headache. He was wondering if he was having atrial fibrillation. His 1 year ago and he has not been checking his blood pressures or his sugar since that time. He was seen in the medical insurance coding specialist office in December and noted to be hypertensive. Patient notes that his arms feel significantly heavy. He feels very tired. His son states that his speech seems off compared to normal. Patient and his son cannot tell me when his speech changed. Reportedly patient was having difficulty with h is speech and his and he was leaning to the right side. His symptoms started on the day of presentation without a clear onset of the time. Pt presenting w/expressive aphasia and suspected dysphagia. Pt w/overt s/s of aspiration/penetration at [facility] on 02/16/21 and additional report of s/s of aspiration/penetration at home prior to admission. Pt was consequently made NPO until instrumental assessment of swallowing function. Current Diet Ordered: NPO Dentition: Upper Dentures Mental Status: WNL Respiratory Status: Oxygenating on Room Air - Penetration-Aspiration Scale Penetration-Aspiration Scale: OBJECTIVE ASSESSMENT OF SWALLOW FUNCTION (QUANTITATIVE ? PER TRIAL): PENETRATION / ASPIRATION SCALE (NGUYEN): 1 = does not enter airway 2 = enters airway/above vocal folds/ejected 3 = enters airway/above vocal folds/not ejected 4 = enters airway/contacts vocal folds/ejected 5 = enters airway/contacts vocal folds/not ejected 6 = enters airway/below vocal folds/ejected 7 = enters airway/below vocal folds/not ejected despite effort 8 = enters airway/below vocal folds/no effort VIDEOFLOROSCOPIC SCALE SCORE (NGUYEN): Grade I = aspiration of material that has penetrated into the laryngeal vestibule, intact cough reflex Grade II = aspiration < 10 % of the bolus, intact cough reflex Grade III = aspiration of < 10 % of the bolus, reduced cough reflex or aspiration of > 10 % of the bolus, intact cough reflex Grade IV = aspiration of > 10 % of the bolus, reduced cough reflex - Penetration-Aspiration Scale Score Thin Liquid via teaspoon Result: 1= does not enter airway - oral hold WFL; retrograde flow through PES observed mid-deglutition Thin Liquid via teaspoon Trial 2 Result: 1= does not enter airway Thin Liquid via small single sip from cup Result: 1= does not enter airway - min penetration to nasopharynx Thin Liquid via sequential sips from cup Result: 2= enter airway/above vocal folds/ejected Thin Liquid via single sip from straw Result: 2= enter airway/above vocal folds/ejected [place] Thick Liquid via small single sip from cup Result: 1= does not enter airway - mild oral residue lining Pudding Result: 1= does not enter airway - throat clearing and multiple reswallows to clear oropharyngeal residue Pudding Large Bite Result: 1= does not enter airway Cookie Result: 1= does not enter airway - Contrast from previous pudding trial and current cookie trial penetrating nasopharynx Thin Liquid via small single sip from cup Trial 2 Result: 2= enter airway/above vocal folds/ejected - Oral Phase Labial Seal: No Labial Escape Tongue Control During Bolus Hold: Cohesive bolus between tongue to palatal seal Bolus Preparation/Mastication: Slow prolonged chewing/mashing with complete recollection Bolus Transport/Lingual Motion: Brisk tongue motion Oral Residue: Residue collection on oral structures - Pt presenting w/piecemeal deglutition resulting in increased oral residue requiring 2-3 swallows to clear - Pharyngeal Phase Initiation of Pharyngeal Swallow: Bolus head in pyriforms Soft Palate Elevation: Escape to nasopharynx Laryngeal Elevation: Comp. Superior move thyroid cart w/comp. apprx arytenoid cart-epig pet Anterior Hyoid Excursion: Partial anterior movement Epiglottic Movement: Complete inversion Laryngeal Vestibule Closure at Height of Swallow: Complete; no air/contrast in laryngeal vestibule Pharyngeal Stripping Wave: Present - diminished Pharyngoesophageal Segment Opening: Minimal distension and minimal duration; marked obstruction of flow Tongue Base Retraction: Trace column of contrast between tongue base & post. pharyngeal wall Pharyngeal Residue: Collection of residue within or on pharyngeal structures - at the level of PES opening - Esophageal Phase Esophageal Clearance: Esophageal retention w/ retrograde flow through pharyngoesophageal seg - Retrograde flow through PES seen on initial swallow of thin by tsp - Treatment Strategies Effects of treatment strategies attemped:: Reduce bolus size: EFFECTIVE Eliminate sequential swallow: EFFECTIVE - Diagnosis/Impression Diagnosis: Mild Oropharyngeal Dysphagia Impression: Pt?s oral phase is primarily marked by slowed mastication, reduced tongue strength, and piecemeal deglutition resulting in minimal-moderate oral residue which was intermittently cleared following a habitual second swallow given the piecemeal deglutition. Pt noted to lose bolus to floor of the mouth however Pt reporting this is baseline for him because he doesn't want to take too large of a swallow. Pt benefits from smaller bite/drink sizes to reduce need for piecemeal deglutition. Pt additionally presenting w/min penetration to nasopharynx across sequential thin, NTL via cup, pudding, and cookie trials. The pharyngeal phase of Pt?s swallow is primarily marked by reduced tongue base retraction and anterior hyoid excursion resulting in reduced distention and duration of PES opening consequently increasing post-prandial residue at the level of the PES, which may explain Pt's feeling of food sticking and episodes of throat clearing during assessment. During esophageal screen, the esophageal phase was remarkable for retention w/retrograde flow below the level of the PES and tertiary contractions; however during first trial of thin liquids via tsp, retrograde flow through PES was observed during deglutition. Rx Pt to adhere to GERD precautions and consult GI referral. - Recommendations Diet: Regular Textures, Thin Liquids Comment: Easy to Chew Solids w/Thin Liquids Compensatory Strategies: Small Bites, Small Sips, Slow Rate, Feed only when alert, Multiple Swallows - to assist in clearing oral and pharyngeal residue, Alternate bites/solids and sips/liquids Supervision: Assist as needed Recommend Repeat Modified Barium Swallow: TBD - PRN Need for Skilled Speech Therapy Services: Yes Comment: Patient requires intensive skilled speech-language intervention targeting: * education re: new diet recommendations * training and implementation of recommended compensatory strategies detailed above to reduce aspiration risk * training and implementation of recommended oropharyngeal strengthening exercises to facilitate improved velopharyngeal motility, hyolaryngeal excursion, tongue base retraction, and PES distention and duration (Adenike, Ruth, Shaker, Effortful Swallows) Recommended Referrals: GI Consult - d/t retrograde flow through PES, esophageal retention, and tertiary contractions Education Completed: 1. Described result of evaluation., 2. Pt understands evaluation & agrees with goals and treatment plan., 7. Pt requires further education on strategies & risks. Comment: Following the study direct education provided re: participating in skilled speech therapy for implementation of exercises targeting velopharyngeal and tongue base strengthening as well as laryngeal excursion and PES duration/distention. RN notified of change in diet to easy to chew, thin liquids, and consideration for GI consult. RN to notify physician. - Image Count: [phone] - Status Active ST Patient: Active - Contact Information [facility] Speech Therapy:: Nessa Romero M.S., CF-DIRECTOR OF DEVELOPMENT AND MARKETING Speech-Language Pathologist [facility] [address] [place] [address] [email or web address] 02/16/21 16:01
--- NOTE | 2021-02-16 16:15 | PCM.DC ---
Discharge Instructions Diet Discharge Diet: 1800 Calorie Control Diet Activity Discharge Activity: Return to Normal Activity Weight Bearing Status: Full weight bearing Follow Up Care Test Results: Test results from this visit will be discussed in further detail at your follow-up appointment, if applicable. Discharge Plan Admission Admit Date/Time: 02/16/21 01:12 Primary Reason for Your Visit: slurred speech Attending Provider: Arvind Mata Primary Care Provider: Himanshu Lopez Instructions Additional Instructions / Restrictions: Follow up with your primary care physician within 2 weeks, reduce your Metformin to 500 mg twice a day if having increased diarrhea on Metformin 1000 mg twice a day Discharge Orders/Prescriptions Prescriptions: Continued nabumetone 750 mg tablet 750 mg PO DAILY PRN (Reason: pain) RF: 0 pantoprazole 20 MG tablet 20 mg PO DAILY RF: 0 metoprolol tartrate 50 mg tablet 75 mg PO BID RF: 0 alprazolam 0.5 mg tablet 0.5 mg PO DAILY PRN PRN (Reason: Insomnia) RF: 0 flecainide 150 mg tablet 150 mg PO Q12H Qty: 60 RF: 11 Changed metformin 500 mg tablet 1,000 mg PO BID Qty: 60 RF: 0 Referrals / Follow Up: Himanshu Lopez MD [Primary Care Provider] - Within 2 Weeks Disposition Disposition (needs filled in before D/C Order can be placed): Home, Self Care
--- NOTE | 2021-02-16 19:26 | PCM.DC.SUM ---
Providers Date of Admission: 02/16/21 Date of Discharge: 02/16/21 Primary Care Physician: Dr. Maliha Lopez MD Reason For Visit: STROKE LIKE SYMPTOMS Diagnosis Discharge Diagnosis (1) Stroke-like symptoms: Status: Acute Code(s): R29.90 - Unspecified symptoms and signs involving the nervous system (2) Uncontrolled diabetes mellitus: Status: Acute Code(s): E11.65 - Type 2 diabetes mellitus with hyperglycemia Qualifiers: Diabetes mellitus type: type 2 Glycemic state: with hyperglycemia Qualified Code(s): E11.65 - Type 2 diabetes mellitus with hyperglycemia Plan: Final diagnosis: #1 dysarthria-etiology unclear #2 uncontrolled type 2 diabetes Medications at Discharge Home Medications nabumetone 750 mg tablet 750 mg PO DAILY PRN 10/22/17 pantoprazole 20 mg PO DAILY 01/20/20 flecainide 150 mg tablet 150 mg PO Q12H #60 tab 07/06/20 alprazolam 0.5 mg PO DAILY PRN PRN 02/16/21 metformin 1,000 mg PO BID #60 tab 02/16/21 metoprolol tartrate 75 mg PO BID 02/16/21 Hospital Course Operations None Procedures 2-D Echocardiogram Summary of Care Provided Minutes Spent on Discharge: 30 Hospital Course: Patient was seen in the emergency room at [facility] with a chief complaint of paresthesias in his feet and problems with his speech according to his family. Patient also complained of severe fatigue. These complaints were vague. Patient underwent a CT of the brain which showed no acute stroke, blood sugar was 271. Patient was placed in observation status on PCU, and H course were carried out and patient underwent an echocardiogram which showed no abnormality. Patient had an MRI which showed no abnormality also and PT and OT saw the patient as well as speech therapy. On 02/18/2021, patient was seen and examined: On examination he appeared in good health and spirits. Vital signs as documented. Skin warm and dry and without overt rashes. Neck without JVD, neck was supple, trachea midline, thyroid was normal. Lungs clear bilaterally, normal air movement was noted. Heart exam notable for regular rhythm, normal sounds and absence of murmurs, rubs or gallops. Abdomen unremarkable and without evidence of organomegaly, masses, or abdominal aortic enlargement. Bowel sounds are present, abdomen is not distended. Extremities nonedematous, no cyanosis was noted, no clubbing was noted. Neuro: Cranial nerves II through XII are grossly intact, no focal motor deficits were noted, sensation to light touch and pinprick intact, motor exam 5/5 throughout. Psych: Patient is alert and oriented x3, he does not appear anxious or depressed, he does not appear agitated. The etiology of the patient's dysarthria was unknown, patient refused to take any aspirin for prevention of stroke due to previous bleeding with anticoagulants. On 02/18/2021, patient was seen and examined and discharged home in stable condition Weight / BMI Weight Weight: 120.4 kg Body Mass Index (BMI) 39.2 ABG / Lab / Microbiology Data Result Diagrams: 02/16/21 04:50 02/16/21 04:50 Laboratory: Laboratory Results - last 24 hr 02/15/21 22:56: POC Glucose 280 H 02/15/21 23:00: WBC 8.2, RBC 4.90, Hgb 15.3, Hct 43.0, MCV 87.8, MCH 31.2, MCHC 35.6, RDW Std Deviation 39.7, RDW Coeff of Hermilo 12.2, Plt Count 263, MPV 11.4, Immature Gran % (Auto) 1.100 H, Neut % (Auto) 40.7 L, Lymph % (Auto) 46.6 H, [place] % (Auto) 9.8, Eos % (Auto) 1.2, Baso % (Auto) 0.6, Absolute Neuts (auto) 3.3, Absolute Lymphs (auto) 3.81, Nucleated RBC % 0 02/15/21 23:00: PT 12.1, INR 1.0, APTT 27.1 02/15/21 23:00: Sodium 133 L, Potassium 4.5, Chloride 101, Carbon Dioxide 25.0, Anion Gap 7, BUN 10, Creatinine 1.13, Estim Creat Clear Calc 68.65, Est GFR (MDRD) Af Amer 85, Est GFR (MDRD) Non-Af 70, BUN/Creatinine Ratio 8.8 L, Glucose 271 H, Calcium 8.3 L, Total Bilirubin 0.50, AST 39 H, ALT 42, Alkaline Phosphatase 110, Troponin I High Sens 6, Total Protein 8.1, Albumin 3.6, Globulin 4.5 H, Albumin/Globulin Ratio 0.8 L 02/16/21 01:30: Troponin I High Sens 9 02/16/21 04:50: WBC 8.3, RBC 4.81, Hgb 14.6, Hct 43.1, MCV 89.6, MCH 30.4, MCHC 33.9, RDW Std Deviation 40.7, RDW Coeff of Hermilo 12.3, Plt Count 246, MPV 10.8, Immature Gran % (Auto) 0.600, Neut % (Auto) 32.3 L, Lymph % (Auto) 55.9 H, [place] % (Auto) 8.4, Eos % (Auto) 2.2, Baso % (Auto) 0.6, Absolute Neuts (auto) 2.7, Absolute Lymphs (auto) 4.64 H, Nucleated RBC % 0 02/16/21 04:50: Sodium 138, Potassium 5.0, Chloride 102, Carbon Dioxide 31.0, Anion Gap 5, BUN 8, Creatinine 0.97, Estim Creat Clear Calc 79.97, Est GFR (MDRD) Af Amer 101, Est GFR (MDRD) Non-Af 84, BUN/Creatinine Ratio 8.3 L, Glucose 217 H, Calcium 8.7, Triglycerides 472 H, Cholesterol 156, LDL Cholesterol TNP, VLDL Cholesterol TNP, HDL Cholesterol 32 L 02/16/21 04:50: Hemoglobin A1c 9.2 H 02/16/21 06:48: POC Glucose 215 H 02/16/21 11:26: POC Glucose 270 H Microbiology: Microbiology 02/16/21 15:20 Nasal Secretion SARS-CoV-2 Antigen (Rapid) - Final Radiography Diagnostic Testing: Radiology Impression Brain CT 02/15/21 23:06 IMPRESSION: Normal unenhanced CT scan of the brain. Acute left maxillary sinusitis Electronically Signed: Dionisio Cartwright DO at 0:19 EDT Tel , Service support , Chest X-Ray 02/15/21 23:25 IMPRESSION: Normal x-ray examination of the chest. Electronically Signed: Dionisio Cartwright DO at 23:42 EDT Tel , Service support , Brain MRI 02/16/21 02:39 IMPRESSION: Involutional changes of the brain, as described above. No acute infarct. Electronically Signed: Francois Miller MD at 13:50 EDT Tel , Service support , Echocardiogram 02/16/21 02:39 Interpretation Summary The estimated ejection fraction is EF 55-60 %. Normal LV systolic function. Ordering Physician: Rinku Daniels Referring Physician: MALIHA LPOEZ Performed By: Patricia Combs, JOSE MANUELCS, RVT Head MRA 02/16/21 02:39 IMPRESSION: Normal MRA of the head Electronically Signed: Francois Miller MD at 13:52 EDT Tel , Service support , Neck MRA 02/16/21 02:39 IMPRESSION: Normal bilateral cervical carotid and vertebral arteries. Electronically Signed: Francois Miller MD at 13:52 EDT Tel , Service support , D/C Instructions Discharge Diet: 1800 Calorie Control Diet Weight Bearing Status: Full weight bearing Meaningful Use Info Meaningful Use Diagnoses (Choose all that apply): None applicable Discharge Plan Admission Admit Date/Time: 02/16/21 01:12 Primary Reason for Your Visit: slurred speech Attending Provider: Arvind Mata Primary Care Provider: Maliha Lopez Instructions Additional Instructions / Restrictions: Patient Problems: Altered Health Status related to Hospitalization Patient Goals: *Optimal Level of Health *Keep Appointments *Medication Compliance *Remain SafeFollow up with your primary care physician within 2 weeks, reduce your Metformin to 500 mg twice a day if having increased diarrhea on Metformin 1000 mg twice a day Discharge Orders/Prescriptions Prescriptions: Continued nabumetone 750 mg tablet 750 mg PO DAILY PRN (Reason: pain) RF: 0 pantoprazole 20 MG tablet 20 mg PO DAILY RF: 0 metoprolol tartrate 50 mg tablet 75 mg PO BID RF: 0 alprazolam 0.5 mg tablet 0.5 mg PO DAILY PRN PRN (Reason: Insomnia) RF: 0 flecainide 150 mg tablet 150 mg PO Q12H Qty: 60 RF: 11 Changed metformin 500 mg tablet 1,000 mg PO BID Qty: 60 RF: 0 Referrals / Follow Up: Maliha Lopez MD [Primary Care Provider] - Within 2 Weeks Disposition Disposition (needs filled in before D/C Order can be placed): Home, Self Care Charges/Coding Visit Charges OBSV E&M: 80613 Observation care discharge
--- NOTE | 2021-02-17 06:49 | CASEMGMT ---
SW did not complete a PHQ 9 as patient did not have a Stroke or TIA per physician. Kathia SAXENA
== END 2021-02-16 16:25 | disposition home or self-care (01) ==
LOC: ED 02-16 00:43 → PCU 02-16 01:16
PROVIDERS: Admitting Provider Hospitalist; Emergency Provider Emergency Medicine; PCP Family Medicine; Visit Provider Internal Medicine
DX: R47.1 Dysarthria and anarthria (principal); E11.65 Type 2 diabetes mellitus with hyperglycemia; R00.2 Palpitations; I48.0 Paroxysmal atrial fibrillation; I25.10 Atherosclerotic heart disease of native coronary artery without angina pectoris; E78.5 Hyperlipidemia, unspecified; I10 Essential (primary) hypertension; E66.9 Obesity, unspecified; R29.701 NIHSS score 1; Z68.39 Body mass index [BMI] 39.0-39.9, adult; E11.40 Type 2 diabetes mellitus with diabetic neuropathy, unspecified; Z79.899 Other long term (current) drug therapy; Z79.84 Long term (current) use of oral hypoglycemic drugs; Z87.891 Personal history of nicotine dependence
CPT/HCPCS: 36415; 70450; 70544; 70547; 70551; 71045; 74230; 80048; 80053; 80061; 82962; 83036; 84484; 85025; 85610; 85730; 87426; 92523; 92610; 92611; 93005; 93306; 96374; 97162; 97166; 97802; 99218; 99285; Q9957; A4216; C8929; G0378; J3490

== ENCOUNTER 2021-10-01 13:30 | Emergency (ER) | payer MEDICARE, SELFPAY ==
[2021-10-01 13:31] VITALS: BP 192/98; PULSE 65; RESP 16; TEMP 36.9; O2SAT 98; BMI 38.4
--- NOTE | 2021-10-01 14:08 | EKG12_ITS ---
Test Reason : HYPERTENSION Blood Pressure : / mmHG Vent. Rate : 059 BPM Atrial Rate : 059 BPM P-R Int : 196 ms QRS Dur : 176 ms QT Int : 516 ms P-R-T Axes : 044 004 012 degrees QTc Int : 510 ms Sinus bradycardia Right bundle branch block Abnormal ECG Confirmed by SOPHIA GRESHAM MD ([id number]), medical transcription editor MICHELLE CARY ([id number]) on 10/03/2021 1:23:17 PM Referred By: BB Confirmed By:SOPHIA GRESHAM MD
--- NOTE | 2021-10-01 14:09 | EX.ED.DYSGE1 ---
HPI History of Present Illness Chief Complaint: Hypertension Informant: patient Onset/Context/Timing Onset: Today Context: Gradual Onset Timing: Continuous Quality: lightheadedness Current Severity: Mild Maximum Severity: Moderate Worsened by: nothing Relieved by: nothing Associated Symptoms Associated Symptoms: BP elevated 184/101 at home; mild headache Narrative Narrative: Patient's has a history of A. fib and hypertension, but he had internal bleeding with anticoagulants so he is on flecainide for rhythm control, has not felt himself going to A. fib at all, but he felt lightheaded and did not feel well earlier today, so he checked his blood pressure and it was 184/101 at home. He said his pulse was in the low 50s at that time, it is in the low 60s here; he takes flecainide and metoprolol. Blood pressure 192 here in triage, as I am examining him it is 168 systolic. He is feeling better but he has a mild headache. No sudden onset thunderclap headaches. No edema recently. Urinating normally. He has had diarrhea for the past week, 3-4 bouts per day, watery nonbloody. He ate almost a whole jar of Jif peanut butter recently, and his kids checked the jar, it was one of the lots in the recall for Salmonella so they discarded it. For today the last time he checked his blood pressure was about a month ago and it was normal, he states he has never been this high. Patient states about 2 weeks ago, he was started on lisinopril, he said he started feeling dizziness after being on it, and so a week after that it was discontinued and he was put on losartan instead. [facility] Medical History Bipolar disorder Chronic coronary artery disease Depression Diabetes Dyspnea on exertion Essential (primary) hypertension Hematuria Hyperlipidemia Obesity Paroxysmal atrial fibrillation Paroxysmal supraventricular tachycardia Right bundle branch block (RBBB) Sebaceous cyst TIA (transient ischemic attack) Uncontrolled diabetes mellitus Home Medications nabumetone 750 mg tablet 750 mg PO DAILY PRN 10/22/17 [History Last Taken 02/09/21] pantoprazole 20 mg PO DAILY 01/20/20 [History Last Taken 02/15/21 09:00] alprazolam 0.5 mg PO DAILY PRN PRN 02/16/21 [History Last Taken Unknown] metoprolol tartrate 75 mg PO BID 02/16/21 [History Last Taken 02/15/21 20:00] flecainide 150 mg tablet 150 mg PO Q12H #180 tab 06/15/21 [Rx Last Taken Unknown] metformin 1,000 mg tablet 1,000 mg PO BID tab 06/15/21 [History Last Taken Unknown] losartan 25 mg tablet 25 mg PO DAILY #30 tab 09/19/21 [Rx Last Taken Unknown] Allergy/AdvReac Type Severity Reaction Status Date / Time adhesive tape Allergy Severe Blisters Verified 10/01/21 13:33 meperidine Allergy Unknown Verified 10/01/21 13:33 amitriptyline AdvReac Severe fatigue Verified 10/01/21 13:33 pneumococcal vaccine AdvReac Severe Dizziness, Verified 10/01/21 13:33 [From Pneumovax 23] N/V ketoconazole AdvReac Unknown Unknown Verified 10/01/21 13:33 atorvastatin AdvReac dizzy, Verified 10/01/21 13:33 joint pain pantoprazole AdvReac dizziness Verified 10/01/21 13:33 influenza vacine Allergy Severe Dizziness, Uncoded 10/01/21 13:33 N/V Family History Sister Hypertension Father Cardiomegaly Pericarditis Surgical History History of radiofrequency ablation procedure for cardiac arrhythmia (09/19/09) Social History Smoking Status: Former smoker alcohol intake: never substance use type: does not use ROS ROS ED Constitutional Constitutional ED: Denies chills or fever(s) Eyes Eyes: Denies change in vision or diplopia ENT ENT ED: Denies rhinorrhea or sore throat Cardiovascular Cardiovascular: Reports lightheadedness; Denies chest pain or palpitations Respiratory/Chest Respiratory/Chest: Denies cough or dyspnea Gastrointestinal Gastrointestinal: Denies abdominal pain, diarrhea, nausea or vomiting Genitourinary Genitourinary ED: Denies dysuria or hematuria Musculoskeletal Musculoskeletal: Denies back pain or neck pain Integumentary Denies abscess or rash Neurologic Neurologic: Reports headache(s); Denies paresthesias or weakness Psychiatric Psychiatric: Reports anxiety; Denies suicidal thoughts EXAM Physical Exam Const Vital Signs: 10/01/21 13:31 10/01/21 13:41 10/01/21 15:04 Temperature 98.4 F Temperature Source Temporal Pulse Rate 65 59 L Respiratory Rate 16 15 Respiratory Pattern Normal Blood Pressure 192/98 H 144/81 H Blood Pressure Mean 129 102 Pulse Ox 98 99 Oxygen Delivery Method Room Air Room Air 10/01/21 15:31 Temperature Temperature Source Pulse Rate Respiratory Rate Respiratory Pattern Blood Pressure 142/79 H Blood Pressure Mean 100 Pulse Ox Oxygen Delivery Method Positive well nourished and well developed General Appearance ED: well developed and NAD HEENT Reports moist mucous membranes normocephalic and atraumatic Eyes PERRL and EOMs intact bilaterally Neck full ROM and supple Resp normal respiratory effort and clear to auscultation bilaterally Effort and Inspection: able to speak in complete sentences Cardio regular rate, regular rhythm and no murmurs GI non-tender and non-distended Auscultation: normoactive bowel sounds Palpation: soft Back/Spine no CVA tenderness General Back: other FROM Extremity normal to inspection General Extremety ED: Negative for edema, pulses abnormal or tenderness General Extremity: Negative for edema or pulses abnormal Neuro oriented x3, CN's II-XII intact bilaterally and no sensory deficits noted Sensorium / Orientation: awake and alert Motor Exam: strength 5/5 throughout Skin no rashes or lesions noted and no wounds MDM MDM MDM Narrative Medical decision making narrative: Patient was given clonidine and Tylenol for his headache, we checked some basic labs, they are normal. His blood pressure is down to 130/75 on reevaluation and he is feeling better. Has had no diarrhea while he was here. I think he is less likely to have Salmonella from peanut butter since he has had no blood, however I think it would be reasonable to test him for it, so we will send him home with a collection kit and a prescription for enteric bacterial panel. He is comfortable with that overall plan. Lab Data Attestation: I reviewed the patient's lab results. Labs: Laboratory Results - last 24 hr 10/01/21 10/01/21 13:48 13:48 WBC 8.6 RBC 4.62 Hgb 14.2 Hct 41.7 MCV 90.3 MCH 30.7 MCHC 34.1 RDW Std Deviation 41.4 RDW Coeff of Hermilo 12.8 Plt Count 239 MPV 10.6 Immature Gran % (Auto) 0.600 Neut % (Auto) 42.5 L Lymph % (Auto) 48.4 H [place] % (Auto) 7.0 Eos % (Auto) 0.9 Baso % (Auto) 0.6 Absolute Neuts (auto) 3.7 Absolute Lymphs (auto) 4.16 Nucleated RBC % 0 Sodium 141 Potassium 4.3 Chloride 109 H Carbon Dioxide 26.0 Anion Gap 6 BUN 9 Creatinine 0.93 Estim Creat Clear Calc 82.36 Est GFR (MDRD) Af Amer 106 Est GFR (MDRD) Non-Af 88 BUN/Creatinine Ratio 9.7 L Glucose 167 H Calcium 8.8 Total Bilirubin 0.70 AST 24 ALT 39 Alkaline Phosphatase 74 Total Protein 7.4 Albumin 3.8 Globulin 3.6 Albumin/Globulin Ratio 1.1 Rhythm Strip Rhythm Strip: Sinus Rhythm Rate: 60 Ectopy: None EKG Initial EKG: Attestation: I personally reviewed and interpreted this EKG as follows: Interpretation: Sinus Rhythm, No Acute Injury Pattern and RBBB Prior EKG tracings: available for review Prior: Unchanged Discharge Plan Triage Chief Complaint: Hypertension ED Provider: Sourav Mike Dx/Rx/DC Orders Clinical Impression: Accelerated hypertension, Lightheadedness, Acute diarrhea Instructions: Hypertension Dc, ED Diarrhea, Unknown Cause Prescriptions: No Action metformin 1,000 mg tablet 1,000 mg PO BID RF: 0 flecainide 150 mg tablet 150 mg PO Q12H Qty: 180 RF: 3 nabumetone 750 mg tablet 750 mg PO DAILY PRN (Reason: pain) RF: 0 pantoprazole 20 MG tablet 20 mg PO DAILY RF: 0 metoprolol tartrate 50 mg tablet 75 mg PO BID RF: 0 alprazolam 0.5 mg tablet 0.5 mg PO DAILY PRN PRN (Reason: Insomnia) RF: 0 losartan 25 mg tablet 25 mg PO DAILY Qty: 30 RF: 11 Other Ambulatory Orders: ENTERIC PATHOGEN PANEL STOOL (Routine) Timeframe: 2 Days Facility: [facility] - Location: Laboratory Ordered By: Dr. Sourav Mike Primary Care Provider: Himanshu Lopez Referrals: Himanshu Lopez MD [Primary Care Provider] - 3-5 Days if not improving Disposition Disposition: Home, Self Care
[2021-10-01] MEDS: 0.9% Normal Saline 1,000 ML 999 ML IV (14:15)
[2021-10-01 14:19] LABS: Absolute Lymphocyte Count 4.16 X10^3/uL (0.83-4.51); Absolute Neutrophil Count 3.7 X10^3/uL (2.0-7.7); Basophil# 0.05 X10^3/uL; Basophil% 0.6 % (0-1); Eosinophil# 0.08 X10^3/uL; Eosinophils% 0.9 % (0-5); Hematocrit 41.7 % (40-54); Hemoglobin 14.2 g/dL (13.0-16.5); Lymphocyte # 4.16 X10^3/ul (0.83-4.51); Lymphocyte % 48.4 % (19-41); Mean Corp Hgb Conc 34.1 g/dL (32-36); Mean Corpuscular Hgb 30.7 pg (27.0-32.0); Mean Corpuscular Volume 90.3 fL (80-94); Mean Platelet Vol. 10.6 fl (6.2-12.0); NRBC Flagged by Analyzer 0 % (0-5); Neutrophil # 3.66 X10^3/uL (2.7-7.7); Neutrophil % 42.5 % (47-70); Platelet Count 239 K/mm3 (150-450); RBC Distribution Width CV 12.8 % (11.6-14.6); RBC Distribution Width SD 41.4 fl (35.1-43.9); Red Blood Count 4.62 M/mm3 (4.6-6.2); White Blood Count 8.6 K/mm3 (4.4-11.0)
[2021-10-01] MEDS: cloNIDine HCl 0.2 MG Tablet PO (14:23)
[2021-10-01] MEDS: Acetaminophen 325 MG Tablet 650 MG PO (14:25)
[2021-10-01 14:38] LABS: ALB/GLOB Ratio 1.1 RATIO (0.9-2.4); AST(SGOT) 24 U/L (15-37); Alanine Aminotransfer ALT/SGPT 39 U/L (16-61); Albumin, Serum 3.8 g/dL (3.2-5.0); Alkaline Phosphatase 74 U/L (45-117); Anion Gap 6 (5-15); BUN 9 mg/dL (7-18); BUN/Creat Ratio 9.7 RATIO (10-20); Calcium,Total 8.8 mg/dL (8.5-10.1); Chloride 109 mmol/L (98-107); Creatinine, Serum 0.93 mg/dL (0.70-1.30); EST Glomerular Filtration Rate 88 mL/min (>60); Est Glom Filt Rate - Afr Amer 106 mL/min (>60); Estimated Creatinine Clearance 82.36 ml/min; Globulin 3.6 g/dL (2.2-4.2); Glucose 167 mg/dL (74-106); Potassium 4.3 mmol/L (3.5-5.1); Protein, Total 7.4 g/dL (6.4-8.2); Sodium Level 141 mmol/L (136-145)
[2021-10-01 15:04] VITALS: BP 144/81; PULSE 59; RESP 15; O2SAT 99
[2021-10-01 15:31] VITALS: BP 142/79
[2021-10-01 17:28] VITALS: BP 141/81
== END 2021-10-01 17:29 | disposition home or self-care (01) ==
PROVIDERS: Emergency Provider Emergency Medicine; PCP Family Medicine; Visit Provider Emergency Medicine
DX: I10 Essential (primary) hypertension (principal); E11.9 Type 2 diabetes mellitus without complications; I25.10 Atherosclerotic heart disease of native coronary artery without angina pectoris; R19.7 Diarrhea, unspecified; R51.9 Headache, unspecified; R42 Dizziness and giddiness; E78.5 Hyperlipidemia, unspecified; Z87.891 Personal history of nicotine dependence
CPT/HCPCS: 80053; 85025; 93005; 99285; J7030

== ENCOUNTER 2021-12-26 15:50 | Observation (INO) | payer MEDICARE, SELFPAY ==
[2021-12-26] VITALS (14 sets, daily range): BP systolic 112–199; BP diastolic 56–112; PULSE 64–96; RESP 14–22; TEMP 36.4–36.6; O2SAT 93–97; BMI 39.9; BMI 39.2
--- NOTE | 2021-12-26 16:02 | EKG12_ITS ---
Test Reason : PALPS Blood Pressure : / mmHG Vent. Rate : 090 BPM Atrial Rate : 090 BPM P-R Int : 178 ms QRS Dur : 176 ms QT Int : 426 ms P-R-T Axes : 047 -52 038 degrees QTc Int : 521 ms Normal sinus rhythm Right bundle branch block Left anterior fascicular block Bifascicular block Abnormal ECG Confirmed by TORI GAMEZ, VIRI ([id number]), continuity editor BRUNO MAIN ([id number]) on 12/28/2021 1:22:55 PM Referred By: PL Confirmed By:DUNG VALLE MD
--- NOTE | 2021-12-26 16:04 | EX.ED.DYSGE1 ---
HPI History of Present Illness Chief Complaint: Palpitations Detail of Chief Complaint: Palpitations since yesterday Informant: patient Narrative Narrative: Patient presents to the emergency department with concern that he might be in atrial fibrillation. Patient has a history of atrial fibrillation with 3 prior ablations the last of which was about 10 years ago. Patient on flecainide and amlodipine. He is not anticoagulated because of history of bleeding from his bladder. Patient denies any chest pain but does have some mild discomfort or tightness at times. He complains of some shortness of breath at times. He complains of feeling lightheaded and feeling like he might pass out at times. The fastest heart rate he got at home was up to 91. Patient also noticed that his blood pressure was somewhat labile and going up as high as 170 systolic and down to 120 systolic. Patient denies recent illness. He denies recent travel or surgery. Prior similar symptoms: Yes PFSH PFSH Medical History Bipolar disorder Chronic coronary artery disease Depression Diabetes Dyspnea on exertion Essential (primary) hypertension Hematuria Hyperlipidemia Obesity Paroxysmal atrial fibrillation Paroxysmal supraventricular tachycardia Right bundle branch block (RBBB) Sebaceous cyst TIA (transient ischemic attack) Uncontrolled diabetes mellitus Home Medications nabumetone 750 mg tablet 750 mg PO DAILY PRN pain 10/22/17 [History Last Taken 02/09/21] pantoprazole 20 mg tablet,delayed release 20 mg PO DAILY reflux 01/20/20 [History Last Taken 02/15/21 09:00] alprazolam 0.5 mg tablet 0.5 mg PO DAILY PRN PRN Insomnia 02/16/21 [History Last Taken Unknown] flecainide 150 mg tablet 150 mg PO Q12H #180 tabs 06/15/21 [Rx Last Taken Unknown] metformin 1,000 mg tablet 1,000 mg PO BID 06/15/21 [History Last Taken Unknown] losartan 25 mg tablet 25 mg PO BID this is a dose increase #60 tabs 10/03/21 [Rx Last Taken Unknown] amlodipine 5 mg tablet 5 mg PO DAILY #30 tabs 10/05/21 [Rx Last Taken Unknown] metoprolol tartrate 50 mg tablet 50 mg PO BID blood pressure 12/26/21 [History Last Taken Unknown] Allergy/AdvReac Type Severity Reaction Status Date / Time adhesive tape Allergy Severe Blisters Verified 12/26/21 15:52 lisinopril Allergy Unknown dizziness Verified 12/26/21 15:52 meperidine Allergy Unknown Verified 12/26/21 15:52 amitriptyline AdvReac Severe fatigue Verified 12/26/21 15:52 Influenza Virus Vaccines AdvReac Severe DIZZINESS, Verified 12/26/21 15:52 NAUSEA, VOMITING pneumococcal vaccine AdvReac Severe Dizziness, Verified 12/26/21 15:52 [From Pneumovax 23] N/V ketoconazole AdvReac Unknown Unknown Verified 12/26/21 15:52 atorvastatin AdvReac dizzy, Verified 12/26/21 15:52 joint pain Family History Sister Hypertension Father Cardiomegaly Pericarditis Surgical History History of radiofrequency ablation procedure for cardiac arrhythmia (09/19/09) Social History Smoking Status: Former smoker how long ago did patient quit smokin years ago alcohol intake: never substance use type: does not use caffeine: No ROS ROS ED Review of Systems ROS Unobtainable: other Constitutional Constitutional ED: Reports lethargy; Denies chills, fever(s), sweats or weight loss Eyes Eyes: Denies blurry vision, change in vision or diplopia ENT ENT ED: Denies rhinorrhea or sore throat Cardiovascular Cardiovascular: Reports chest pain and racing heartbeat; Denies orthopnea Respiratory/Chest Respiratory/Chest: Reports dyspnea and dyspnea on exertion; Denies cough, orthopnea or sputum Gastrointestinal Gastrointestinal: Denies abdominal pain, diarrhea, nausea or vomiting Genitourinary Genitourinary ED: Denies dysuria, hematuria or urinary frequency Musculoskeletal Musculoskeletal: Denies arthralgias, back pain, myalgias or neck pain Integumentary Denies abscess, Abrasions or rash Neurologic Neurologic: Denies headache(s) or weakness Psychiatric Psychiatric: Denies anxiety, depression or suicidal thoughts Endocrine Endocrinology: Denies polydipsia, polyphagia or polyuria Hematologic/Lymphatic Hematologic/Lymphatic: Denies easy bleeding, easy bruising or lymphadenopathy Allergic/Immunologic Allergic/Immunologic ED: Denies mouth swelling, tongue swelling or urticaria EXAM Physical Exam Const Vital Signs: 12/26/21 15:50 12/26/21 16:04 12/26/21 16:05 Temperature 97.9 F Temperature Source Temporal Pulse Rate 96 91 Pulse Rate [Lying] Pulse Rate [Sitting (for 1 minute prior to obtaining)] Pulse Rate [Standing (for 1 minute prior to obtaining)] Respiratory Rate 20 H 22 H Respiratory Effort Non-Labored Short of Breath Respiratory Pattern Normal Blood Pressure 191/84 H 199/95 H Blood Pressure [Lying] Blood Pressure [Sitting (for 1 minute prior to obtaining)] Blood Pressure [Standing (for 1 minute prior to obtaining)] Blood Pressure Mean 119 129 Blood Pressure Mean [Lying] Blood Pressure Mean [Sitting (for 1 minute prior to obtaining)] Blood Pressure Mean [Standing (for 1 minute prior to obtaining)] Pulse Ox 95 97 Oxygen Delivery Method Room Air Room Air 12/26/21 17:02 12/26/21 17:02 Temperature Temperature Source Pulse Rate 77 Pulse Rate [Lying] 78 Pulse Rate [Sitting (for 1 minute prior to obtaining)] 81 Pulse Rate [Standing (for 1 minute prior to obtaining)] 81 Respiratory Rate 14 Respiratory Effort Respiratory Pattern Blood Pressure 177/89 H Blood Pressure [Lying] 178/95 H Blood Pressure [Sitting (for 1 minute prior to obtaining)] 174/77 H Blood Pressure [Standing (for 1 minute prior to obtaining)] 163/104 H Blood Pressure Mean 118 Blood Pressure Mean [Lying] 122 Blood Pressure Mean [Sitting (for 1 minute prior to obtaining)] 109 Blood Pressure Mean [Standing (for 1 minute prior to obtaining)] 123 Pulse Ox 97 Oxygen Delivery Method Room Air Positive well nourished and well developed General Appearance ED: well developed and NAD HEENT Reports TM's clear and moist mucous membranes normocephalic and atraumatic; Negative for trauma or tenderness Tympanic Membrane ED: Yes TM's clear Eyes PERRL and EOMs intact bilaterally General Eye ED: Negative for pale conjunctiva or scleral icterus Neck no lymphadenopathy, supple and no JVD General: Negative for tenderness Chest Wall inspection of chest normal and palpation of chest normal Chest: Negative for tenderness Resp normal respiratory effort and clear to auscultation bilaterally Effort and Inspection: Negative for respiratory distress or pain with movement Auscultation: Negative for rhonchi, wheezes or diminished lung sounds Cardio regular rate, regular rhythm, S1 normal heart sound, S2 normal heart sound and no murmurs Peripheral Pulses: pulses 2+ throughout GI normal to inspection, nondistended, normoactive bowel sounds, soft to palpation, non-tender, non-distended and no masses Back/Spine no CVA tenderness and no thoracic nor lumbar tenderness Extremity normal to inspection General Extremety ED: Negative for edema General Extremity: Negative for edema Neuro oriented x3, CN's II-XII intact bilaterally, no sensory deficits noted and gait normal Sensorium / Orientation: awake, alert, oriented to person, oriented to place and oriented to time Motor Exam: strength 5/5 throughout and strength abnormal Psych mental status grossly normal Skin no rashes or lesions noted and no wounds MDM MDM MDM Narrative Medical decision making narrative: IV line established on arrival. Patient placed on a equipment monitor phototypesetting. EKG obtained arrival showed a sinus rhythm with a right bundle branch block and left anterior fascicular block. Patient lab work-up was normal including D-dimer and troponin. Chest x-ray was unremarkable and COVID-19 testing was negative. Patient was ordered aspirin and sublingual nitro. Continues to complain of this heaviness in his chest and the etiology is unclear. He did have a stress test little over a year ago that was unremarkable but he is never had a heart cath. Case was discussed with bee worker on-call Dr. Camron Saunders. Patient would feel more comfortable with admission and further evaluation and given his heart score of 5 certainly feel this is reasonable. It was recommended the patient be admitted and have a repeat stress test tomorrow. Lab Data Attestation: I reviewed the patient's lab results. Labs: Laboratory Results - last 24 hr 12/26/21 12/26/21 12/26/21 16:30 16:30 16:30 WBC 7.5 RBC 4.74 Hgb 14.6 Hct 41.9 MCV 88.4 MCH 30.8 MCHC 34.8 RDW Std Deviation 40.7 RDW Coeff of Hermilo 12.5 Plt Count 237 MPV 10.6 Immature Gran % (Auto) 0.700 Neut % (Auto) 54.3 Lymph % (Auto) 36.6 [place] % (Auto) 6.9 Eos % (Auto) 0.8 Baso % (Auto) 0.7 Absolute Neuts (auto) 4.1 Absolute Lymphs (auto) 2.75 Nucleated RBC % 0 D-Dimer Quant (PE/DVT) < 0.27 L Sodium 140 Potassium 3.7 Chloride 108 H Carbon Dioxide 24.0 Anion Gap 8 BUN 10 Creatinine 0.95 Estim Creat Clear Calc 80.62 Est GFR (MDRD) Af Amer 103 Est GFR (MDRD) Non-Af 85 BUN/Creatinine Ratio 10.5 Glucose 231 H Calcium 9.1 Troponin I High Sens 6 Radiography Chest X-Ray - ED: 1 View Diagnostic Testing: Clinical Impression(s) from Imaging Studies Chest X-Ray 12/26/21 16:40 IMPRESSION: Normal x-ray examination of the chest. Electronically Signed: Elliott Rosas MD at 17:03 EDT , 1 view chest x-ray obtained interpreted by myself no acute disease process. Radiology in agreement. EKG Initial EKG: Attestation: I personally reviewed and interpreted this EKG as follows: Comments: Sinus rhythm with a ventricular rate of 90 bpm with a right bundle branch block and left anterior fascicular block Discharge Plan Triage Chief Complaint: Palpitations ED Provider: Lamin Mckeon Dx/Rx/DC Orders Clinical Impression: Chest pain, Acute dyspnea Prescriptions: No Action metformin 1,000 mg tablet 1,000 mg PO BID flecainide 150 mg tablet 150 mg PO Q12H Qty: 180 3RF nabumetone 750 mg tablet 750 mg PO DAILY PRN (Reason: pain) pantoprazole 20 MG tablet 20 mg PO DAILY alprazolam 0.5 mg tablet 0.5 mg PO DAILY PRN PRN (Reason: Insomnia) Label Comments: Take 1-2 tablets twice a day as needed for sleep/panic losartan 25 mg tablet 25 mg PO BID Qty: 60 11RF amlodipine 5 mg tablet 5 mg PO DAILY Qty: 30 11RF metoprolol tartrate 50 mg tablet 50 mg PO BID Primary Care Provider: Himanshu Lopez Referrals: Himanshu Lopez MD [Primary Care Provider] - Disposition Disposition: Acute Care [facility]
[2021-12-26] MEDS: 0.9% Normal Saline 1,000 ML 150 ML IV ×2 (16:36→20:17)
--- NOTE | 2021-12-26 16:40 | RAD_ITS ---
STUDY: X-RAY CHEST REASON FOR EXAM: Male, 61 years old. dyspnea TECHNIQUE: Single frontal view of the chest. COMPARISON: 02/15/2021 FINDINGS: The lungs are clear and expanded. There is no demonstrated pleural abnormality. Normal size heart. Normal mediastinum and viky. Normal visualized pulmonary arteries. Normal visualized aortic arch and descending thoracic aorta. Normal visualized thoracic spine. Normal visualized ribs, clavicles, and shoulders. There is no demonstrated abnormality of the visualized soft tissue structures of the upper abdomen. RAD/Chest 1 View (Portable) IMPRESSION: Normal x-ray examination of the chest. Electronically Signed: Elliott Rosas MD at 17:03 EDT ,
[2021-12-26 16:44] LABS: Absolute Lymphocyte Count 2.75 X10^3/uL (0.83-4.51); Absolute Neutrophil Count 4.1 X10^3/uL (2.0-7.7); Basophil# 0.05 X10^3/uL; Basophil% 0.7 % (0-1); Eosinophil# 0.06 X10^3/uL; Eosinophils% 0.8 % (0-5); Hematocrit 41.9 % (40-54); Hemoglobin 14.6 g/dL (13.0-16.5); Lymphocyte # 2.75 X10^3/ul (0.83-4.51); Lymphocyte % 36.6 % (19-41); Mean Corp Hgb Conc 34.8 g/dL (32-36); Mean Corpuscular Hgb 30.8 pg (27.0-32.0); Mean Corpuscular Volume 88.4 fL (80-94); Mean Platelet Vol. 10.6 fl (6.2-12.0); Monocyte# 0.52 X10^3/uL; Monocyte% 6.9 % (0-10); NRBC Flagged by Analyzer 0 % (0-5); Neutrophil # 4.08 X10^3/uL (2.7-7.7); Neutrophil % 54.3 % (47-70); Platelet Count 237 K/mm3 (150-450); RBC Distribution Width CV 12.5 % (11.6-14.6); RBC Distribution Width SD 40.7 fl (35.1-43.9); Red Blood Count 4.74 M/mm3 (4.6-6.2); White Blood Count 7.5 K/mm3 (4.4-11.0)
[2021-12-26 17:04] LABS: D-Dimer Quantitative (DVT/PE) < 0.27 FEU/ug/m (0.27-0.49)
[2021-12-26 17:05] LABS: Anion Gap 8 (5-15); BUN 10 mg/dL (7-18); BUN/Creat Ratio 10.5 RATIO (10-20); Calcium,Total 9.1 mg/dL (8.5-10.1); Chloride 108 mmol/L (98-107); Creatinine, Serum 0.95 mg/dL (0.70-1.30); EST Glomerular Filtration Rate 85 mL/min (>60); Est Glom Filt Rate - Afr Amer 103 mL/min (>60); Estimated Creatinine Clearance 80.62 ml/min; Glucose 231 mg/dL (74-106); Potassium 3.7 mmol/L (3.5-5.1); Sodium Level 140 mmol/L (136-145); Troponin-I HS 6 pg/mL (3.0-78.0)
--- NOTE | 2021-12-26 17:35 | HP.PCM.HOS_ITS ---
HPI - General General Date of Admission: 12/26/21 Date of Service: 12/26/21 Chief Complaint: palpitations HPI Narrative IRINA SALGADO, is a 61 M with a PMH as outlined who presents via the ED with a complaint of palpitations and chest pressure. He has a history of afib, and has had unsuccessful/aborted AV ridge ablation x 2. He had associated chest pressure which he described as heavy chest pressure and his BP has also been labile. He said his heart rate went down to the 50s the day before admission, though his heart rate was usually in the 80s. He denied any dizziness, nausea, vomiting or diarrhea but admitted to persistent chest pressure, which he said he had never experienced chest pain like that before. He also admitted to [facility]. Review of systems is otherwise negative. Vitals were blood pressure 178/95, pulse rate of 81 and respiratory to 14 he was saturating at 97% on room air. CBC was unremarkable and D-dimer was less than 0.27. Chemistry was also unremarkable and initial troponin was negative. Chest x-ray showed no acute cardiopulmonary pathology. He is being admitted to be managed for chest pain rule out ACS. [facility] Medical History Bipolar disorder Chronic coronary artery disease Depression Diabetes Dyspnea on exertion Essential (primary) hypertension Hematuria Hyperlipidemia Obesity Paroxysmal atrial fibrillation Paroxysmal supraventricular tachycardia Right bundle branch block (RBBB) Sebaceous cyst TIA (transient ischemic attack) Uncontrolled diabetes mellitus Home Medications nabumetone 750 mg tablet 750 mg PO DAILY PRN pain 10/22/17 [History Last Taken 02/09/21] pantoprazole 20 mg tablet,delayed release 20 mg PO DAILY reflux 01/20/20 [Hist ory Last Taken 02/15/21 09:00] alprazolam 0.5 mg tablet 0.5 mg PO DAILY PRN PRN Insomnia 02/16/21 [History Last Taken Unknown] flecainide 150 mg tablet 150 mg PO Q12H #180 tabs 06/15/21 [Rx Last Taken Unknown] metformin 1,000 mg tablet 1,000 mg PO BID 06/15/21 [History Last Taken Unknown] amlodipine 5 mg tablet 5 mg PO DAILY #30 tabs 10/05/21 [Rx Last Taken Unknown] losartan 25 mg tablet 25 mg PO BID 12/26/21 [History Last Taken 12/26/21] metoprolol tartrate 50 mg tablet 50 mg PO BID blood pressure 12/26/21 [History Last Taken Unknown] Allergy/AdvReac Type Severity Reaction Status Date / Time adhesive tape Allergy Severe Blisters Verified 12/26/21 15:52 lisinopril Allergy Unknown dizziness Verified 12/26/21 15:52 meperidine Allergy Unknown Verified 12/26/21 15:52 amitriptyline AdvReac Severe fatigue Verified 12/26/21 15:52 Influenza Virus Vaccines AdvReac Severe DIZZINESS, Verified 12/26/21 15:52 NAUSEA, VOMITING pneumococcal vaccine AdvReac Severe Dizziness, Verified 12/26/21 15:52 [From Pneumovax 23] N/V ketoconazole AdvReac Unknown Unknown Verified 12/26/21 15:52 atorvastatin AdvReac dizzy, Verified 12/26/21 15:52 joint pain Family History Sister Hypertension Father Cardiomegaly Pericarditis Surgical History History of radiofrequency ablation procedure for cardiac arrhythmia (09/19/09) Social History Smoking Status: Former smoker how long ago did patient quit smokin years ago alcohol intake: never substance use type: does not use caffeine: No ROS Constitutional Constitutional: Denies anorexia, chills, fatigue, fever(s), malaise or weakness Eyes Eyes: Denies change in vision ENT HEENT: Denies dysphagia, headache(s), hearing loss, nasal congestion or sore throat Cardiovascular Cardiovascular: Reports chest pain and palpitations; Denies dyspnea on exertion, edema, lightheadedness, orthopnea, paroxysmal nocturnal dyspnea, rapid heart rate or syncope Respiratory/Chest Respiratory/Chest: Denies cough, dyspnea, productive cough, shortness of breath at rest or shortness of breath with exertion Gastrointestinal Gastrointestinal: Denies abdominal pain or diarrhea Genitourinary Genitourinary: Denies burning urination Musculoskeletal Musculoskeletal: Denies arthralgias or joint pain Neurologic Neurologic: Denies confusion, dizziness, focal weakness, headache(s), seizures, syncope or tremor(s) Psychiatric Psychiatric: Denies anxiety Endocrine Endocrinology: Denies change in body appearance Vital Signs Vital Signs Vital Signs: 12/26/21 15:50 12/26/21 16:04 12/26/21 16:05 Temperature 97.9 F Temperature Source Temporal Pulse Rate 96 91 Pulse Rate [Lying] Pulse Rate [Sitting (for 1 minute prior to obtaining)] Pulse Rate [Standing (for 1 minute prior to obtaining)] Respiratory Rate 20 H 22 H Respiratory Effort Non-Labored Short of Breath Respiratory Pattern Normal Blood Pressure 191/84 H 199/95 H Blood Pressure [Lying] Blood Pressure [Sitting (for 1 minute prior to obtaining)] Blood Pressure [Standing (for 1 minute prior to obtaining)] Blood Pressure Mean 119 129 Blood Pressure Mean [Lying] Blood Pressure Mean [Sitting (for 1 minute prior to obtaining)] Blood Pressure Mean [Standing (for 1 minute prior to obtaining)] Pulse Ox 95 97 Oxygen Delivery Method Room Air Room Air 12/26/21 17:02 12/26/21 17:02 Temperature Temperature Source Pulse Rate 77 Pulse Rate [Lying] 78 Pulse Rate [Sitting (for 1 minute prior to obtaining)] 81 Pulse Rate [Standing (for 1 minute prior to obtaining)] 81 Respiratory Rate 14 Respiratory Effort Respiratory Pattern Blood Pressure 177/89 H Blood Pressure [Lying] 178/95 H Blood Pressure [Sitting (for 1 minute prior to obtaining)] 174/77 H Blood Pressure [Standing (for 1 minute prior to obtaining)] 163/104 H Blood Pressure Mean 118 Blood Pressure Mean [Lying] 122 Blood Pressure Mean [Sitting (for 1 minute prior to obtaining)] 109 Blood Pressure Mean [Standing (for 1 minute prior to obtaining)] 123 Pulse Ox 97 Oxygen Delivery Method Room Air Weight Weight: 270 lb Body Mass Index (BMI) 39.9 Physical Exam Const alert, oriented x3 and no apparent distress General Appearance: cooperative HEENT normocephalic, head/scalp atraumatic, hearing grossly normal bilaterally and moist oral mucous membranes Mouth: oral and palatal mucosa normal Eyes PERRL, EOMs intact bilaterally and conjunctivae normal Neck no lymphadenopathy, supple and no JVD Resp normal respiratory effort, no retractions, no use of accessory muscles and clear to auscultation bilaterally Cardio regular rate, regular rhythm, S1 normal heart sound, S2 normal heart sound and no murmurs GI normal to inspection, nondistended, normoactive bowel sounds, soft to palpation, non-tender and non-distended Extremity normal to inspection, full ROM and no clubbing, cyanosis or edema Neuro oriented x3, CN's II-XII intact bilaterally, moves all extremities and no focal motor deficits Sensorium / Orientation: awake and alert Speech: speech normal Motor Exam: strength 5/5 throughout Psych affect normal Results Lab / Micro Data Result Diagrams: 12/26/21 16:30 12/26/21 16:30 Labs: Laboratory Results - last 24 hr 12/26/21 16:30: WBC 7.5, RBC 4.74, Hgb 14.6, Hct 41.9, MCV 88.4, MCH 30.8, MCHC 34.8, RDW Std Deviation 40.7, RDW Coeff of Hermilo 12.5, Plt Count 237, MPV 10.6, Immature Gran % (Auto) 0.700, Neut % (Auto) 54.3, Lymph % (Auto) 36.6, [place] % (Auto) 6.9, Eos % (Auto) 0.8, Baso % (Auto) 0.7, Absolute Neuts (auto) 4.1, Absolute Lymphs (auto) 2.75, Nucleated RBC % 0 12/26/21 16:30: D-Dimer Quant (PE/DVT) < 0.27 L 12/26/21 16:30: Sodium 140, Potassium 3.7, Chloride 108 H, Carbon Dioxide 24.0, Anion Gap 8, BUN 10, Creatinine 0.95, Estim Creat Clear Calc 80.62, Est GFR (MDRD) Af Amer 103, Est GFR (MDRD) Non-Af 85, BUN/Creatinine Ratio 10.5, Glucose 231 H, Calcium 9.1, Troponin I High Sens 6 Micro: Microbiology 12/26/21 16:20 Nasal Secretion SARS-CoV-2 Antigen (Rapid) - Final Radiology Impression Chest X-Ray 12/26/21 16:40 IMPRESSION: Normal x-ray examination of the chest. Electronically Signed: Elliott Rosas MD at 17:03 EDT , Assessment & Plan Assessment/Plan (1) Chest pain: (2) Dizziness: PLAN: Plan #Chest pain to rule out ACS * admit to PCU * initially presented with palpitations, but subsequently complained of chest pain which was heavy and pressure like * initial troponin is negative * EKG showed no acute ST changes * cycle troponins * PO aspirin 81mg daily; he received aspirin 325mg x 1 in the ED * for stress test tomorrow * #Afib * complained of palpitations, but was in sinus rhythm on admission. EKG showed no acute ST changes * has had unsuccessful/aborted AV ridge ablation x 2. * on metoprolol and flecainide * not on any blood thinner due to history of GI bleed * #Hypertension: on amlodipine, losartan and metoprolol. Blood pressure is labile. IV hydralazine prn #Type 2 diabetes mellitus * hold metformin. ISS. Accuchecks ACHS DVT prophylaxis: lovenox Code status: full code * Patient counseled extensively about different types of CODE STATUS including full code, DNR CCA and DNR CCA. Patient elects to be full code. * Total lajg-hd-wlmu time 16 minutes. Charges/Coding Visit Charges OBSV E&M: 26768 Initial observation care L2 Procedures Hospitalists Procedures: 56331 Advncd Care Plan 30 Min
[2021-12-26] MEDS: Aspirin 81 MG TAB.CHEW 324 MG PO (17:54)
[2021-12-26] MEDS: Nitroglycerin SL (ED/IMG/CATH) 0.4 MG TABLET SL ×3 (17:58→18:09)
[2021-12-26] MEDS: Flecainide 150 MG Tablet PO (18:55)
--- NOTE | 2021-12-26 20:06 | EKG12_ITS ---
Test Reason : AFIB Blood Pressure : / mmHG Vent. Rate : 081 BPM Atrial Rate : 081 BPM P-R Int : 182 ms QRS Dur : 178 ms QT Int : 474 ms P-R-T Axes : 063 -56 022 degrees QTc Int : 550 ms Normal sinus rhythm Left axis deviation Right bundle branch block Inferior infarct , age undetermined Abnormal ECG Confirmed by SHERIDAN GAMEZ, COLE ([id number]), business editor [facility] ([id number]) on 12/28/2021 9:52:15 AM Referred By: COLE SWARTZ Confirmed By:COLE SWARTZ MD
[2021-12-26 20:08] LABS: Troponin-I HS 6 pg/mL (3.0-78.0)
--- NOTE | 2021-12-26 20:21 | EKG12_ITS ---
Test Reason : CP Blood Pressure : / mmHG Vent. Rate : 065 BPM Atrial Rate : 065 BPM P-R Int : 174 ms QRS Dur : 162 ms QT Int : 486 ms P-R-T Axes : 062 -24 002 degrees QTc Int : 505 ms Normal sinus rhythm Right bundle branch block Abnormal ECG Confirmed by SHERIDAN GAMEZ, COLE ([id number]), editorial specialist [facility]UN[facility]IN ([id number]) on 01/02/2022 8:07:58 AM Referred By: CESIA Confirmed By:COLE SWARTZ MD
[2021-12-26] MEDS: Metoprolol Tartrate 50 MG Tablet PO (22:10)
[2021-12-26] MEDS: Losartan Potassium 25 MG Tablet PO (22:11)
[2021-12-26 23:12] LABS: Troponin-I HS 8 pg/mL (3.0-78.0)
[2021-12-26 23:15] LABS: Bedside Glucose 112 mg/dL (74-106)
[2021-12-27] VITALS (7 sets, daily range): BP systolic 132–148; BP diastolic 76–86; PULSE 56–69; RESP 14–18; TEMP 36.6–37.1; O2SAT 94–97
[2021-12-27] MEDS: 0.9% Normal Saline 1,000 ML 150 ML IV (03:36)
--- NOTE | 2021-12-27 05:55 | EKG12_ITS ---
Test Reason : ROUTINE Blood Pressure : / mmHG Vent. Rate : 059 BPM Atrial Rate : 059 BPM P-R Int : 184 ms QRS Dur : 170 ms QT Int : 516 ms P-R-T Axes : 046 -22 000 degrees QTc Int : 510 ms Sinus bradycardia Right bundle branch block Abnormal ECG Confirmed by SHERIDAN GAMEZ, COLE ([id number]), city editor [facility] ([id number]) on 01/02/2022 8:03:26 AM Referred By: CESIA Confirmed By:COLE SWARTZ MD
[2021-12-27] MEDS: Losartan Potassium 25 MG Tablet PO (06:20)
[2021-12-27] MEDS: Flecainide 150 MG Tablet PO (06:20)
[2021-12-27 07:20] LABS: Bedside Glucose 138 mg/dL (74-106)
--- NOTE | 2021-12-27 10:08 | STRESSREP_ITS ---
Stress Test Report Date: 12-27-2021 Procedure: Pharmacologic stress nuclear imaging study Indications: Chest pain; CAD; PAF; abnormal ECG-right bundle branch block Consent: Per the patient Procedure: The patient underwent pharmacologic (Regadenoson 0.4mg ) evaluation with a peak heart rate of 95 beats per minute (60%predicted maximal heart rate) and a peak blood pressure of 168/98 mmHg. The baseline ECG demonstrated normal sinus rhythm; right bundle branch block. The peak pharmacologic ECG demonstrated no obvious ECG changes. There were no cardiac dysrhythmias pretest, during pharmacologic infusion, or recovery. There was no complaint of chest discomfort during pharmacologic infusion or recovery. The examination was discontinued secondary to completion of protocol. Impression: 1. Pharmacologic (Regadenoson) evaluation 2. Peak pharmacologic ECG with continued right bundle branch block. 3. There were no cardiac dysrhythmias pretest, during pharmacologic infusion, or recovery. 4. Nuclear images pending Myocardial perfusion imaging study: Technique: The patient was injected with 15.0 millicuries of technetium 99m Cardiolite and subsequently rest SPECT Cardiolite nuclear imaging was obtained in the horizontal long, vertical long, and short axis views. The patient underwent pharmacologic (Regadenoson) evaluation with a peak heart rate of 95 beats per minute (60% percent predicted maximal heart rate) and a peak blood pressure of 168/98 mmHg. The patient was injected with 44.8 millicuries of technetium 99m Cardiolite and subsequently stress SPECT Cardiolite nuclear imaging was obtained in the horizontal long, vertical long, and short axis views. A gated Cardiolite study at peak stress was obtained. Interpretation: Rest and stress SPECT Cardiolite nuclear imaging status post realignment, normalization, and attenuation correction demonstrate relative uniform tracer uptake and myocardial perfusion appearing within normal limits. There is end systolic thickening and brightening. The gated Cardiolite study demonstrates myocardial thickening and inward wall motion. The reported LVEF is 71%. Impression: 1. Relative uniform tracer uptake and myocardial perfusion appearing within normal limits. 2. The gated Cardiolite study reports an LVEF of 71%. This note was generated with [employer] software. It may contain incorrect words, spelling, and punctuation that were not noted in checking the note before signing.
--- NOTE | 2021-12-27 10:32 | DCINST_ITS ---
Discharge Instructions Diet Discharge Diet: Low fat / Low cholesterol, 1800 Calorie Control Diet and 2000 mg Sodium Diet Activity Discharge Activity: Return to Normal Activity and May Not Drive Weight Bearing Status: Weight bearing as tolerated Dressing / Incision Call your doctor if you observe: Fever of 101 or Higher, Coldness, Increased Pain, Numbness or Tingling, Change in Color, Inability to urinate, Inability to have a bowel movement, Shortness of breath, Dizziness, Fainting spells, Swelling in the ankles, Chest pain, Prolonged hiccupping, Increased palpitations (irregular heartbeat) and Calf discomfort Follow Up Care Test Results: Test results from this visit will be discussed in further detail at your follow- up appointment, if applicable. Discharge Plan Admission Admit Date/Time: 12/26/21 17:47 Primary Reason for Your Visit: Atypical chest pain, A. fib Attending Provider: Rafita Gonzalez Primary Care Provider: Himanshu Lopez Consulting Providers: Ema Mead Discharge Orders/Prescriptions Prescriptions: Continued metformin 1,000 mg tablet 1,000 mg PO BID flecainide 150 mg tablet 150 mg PO Q12H Qty: 180 3RF pantoprazole 20 MG tablet 20 mg PO DAILY alprazolam 0.5 mg tablet 0.5 mg PO DAILY@2200 PRN (Reason: Insomnia) Label Comments: Take 1-2 tablets twice a day as needed for sleep/panic metoprolol tartrate 50 mg tablet 75 mg PO BID Changed losartan 25 mg tablet 25 mg PO DAILY Qty: 30 0RF Rx Instructions: Hold for SBP less than 130 mmHg Held amlodipine 5 mg tablet 5 mg PO DAILY Qty: 30 11RF Hold Instructions: Hold for systolic blood pressure less than 130 mmHg for 3 days. Follow with PCP Discontinued nabumetone 750 mg tablet 750 mg PO DAILY PRN (Reason: pain) Referrals / Follow Up: Himanshu Lopez MD [Primary Care Provider] - Disposition Disposition (needs filled in before D/C Order can be placed): Home, Self Care
[2021-12-27] MEDS: Metoprolol Tartrate 50 MG Tablet PO (10:54)
[2021-12-27] MEDS: Pantoprazole Sodium 20 MG Tablet PO (10:55)
[2021-12-27] MEDS: amLODIPine 5 MG Tablet PO (10:55)
[2021-12-27] MEDS: Acetaminophen 325 MG Tablet 650 MG PO (11:12)
[2021-12-27] MEDS: Insulin Lispro 100 UNIT/ML INSULN.PEN SC (11:15)
[2021-12-27 11:40] LABS: Bedside Glucose 172 mg/dL (74-106)
--- NOTE | 2021-12-27 13:27 | DS.PCM_ITS ---
Providers Date of Admission: 12/26/21 Date of Discharge: 12/27/21 Primary Care Physician: Dr. Himanshu Lopez MD Reason For Visit: CHEST PAIN, DYSPNEA Diagnosis Discharge Diagnosis (1) Chest pain: Status: Acute Code(s): R07.9 - Chest pain, unspecified (2) Dizziness: Status: Acute Code(s): R42 - Dizziness and giddiness Medications at Discharge Home Medications pantoprazole 20 mg tablet,delayed release 20 mg PO DAILY reflux 01/20/20 alprazolam 0.5 mg tablet 0.5 mg PO DAILY@2200 PRN Insomnia 02/16/21 flecainide 150 mg tablet 150 mg PO Q12H #180 tabs 06/15/21 metformin 1,000 mg tablet 1,000 mg PO BID 06/15/21 amlodipine 5 mg tablet 5 mg PO DAILY #30 tabs 10/05/21 metoprolol tartrate 50 mg tablet 75 mg PO BID blood pressure 12/26/21 losartan 25 mg tablet 25 mg PO DAILY #30 tabs 12/27/21 Hospital Course Summary of Care Provided Hospital Course: This 61-year-old gentleman with history of A. fib status post unsuccessful AV ridge ablation x2 was admitted for complaint of palpitation and chest discomfort. Patient felt chest heaviness and heart rate down to 50s and blood pressure has been labile. Usually his heart rate in the 80s. Denies dizziness nausea vomiting diarrhea, syncope. Patient was admitted in PCU. Patient follows Dr. Lao and Toni rutledge. During hospital course his assessment, diagnosis and management plan admission below: 1. Chest pressure atypical: ACS was ruled out. quality assurance monitor chassis shows sinus rhythm, heart rate in 50s. Serial troponin enzymes negative. D-dimer was low. Patient underwent Lexiscan nuclear stress test which shows no stress-induced ischemia. Pharmacological nuclear stress test usually there is no good chronotropic or BP response to medicine. Discussed with Dr. Saunders. Patient blood pressure is normal, systolic 112/56-1 32/76. Losartan decreased from 25 twice daily to 25 once daily. Amlodipine to hold and later can discontinue it. quality assurance monitor chassis shows sinus rhythm and PVCs but no life-threatening arrhythmia. Discussed with COSTA Mercer. Patient had a scheduled 24-hour Holter monitor and since he has been admitted and had a stress test therefore it was canceled after discussion with Toni rutledge. Patient advised to follow-up in cardiology office in 2 to 3 weeks or can call Toni rutledge with any questions regarding blood pressure or heart rate. 2. Paroxysmal A. fib with slow heart rates response in 50s, and hypertension: Heart rate recovered. Blood pressure in normal range. Discharge meds reconciliation done as mentioned above. 3 Type 2 diabetes mellitus: Glucose 231 in BMP. Accu-Cheks with Humalog sliding scale was done. Glucose control to 112-138. Resume metformin. DVT prophylaxis: lovenox Discharge medication reconciliation done. Discharge follow-up instructions completed. Discharge process discussed with the patient and all questions were answered to patient's satisfaction. Discharged to home. Total time spent, exact 35 minutes on discharge meds reconciliation, examina tion, coordination of care with nurses and ancillary staff, review of imaging and blood test and discussion with the patient on follow-up instructions. Physical Exam Narrative Seen and examined on the day of discharge. quality assurance monitor chassis reviewed. Sinus rhythm, heart rate in 50s to 60s per minute. PVCs. Physical exam General: Alert, Oriented x3, Cooperative HEENT: Atraumatic, PERRLA, EOMI, Normocephalic Oral: No Gingival or Mucosal Lesions/ Ulcerations Neck: Supple, No JVD, Negative Carotid Bruits Lungs: Air entry diminished in bilateral lung bases. No crepitation/rhonchi/wheezing. No tachypnea or hypoxia. Cardiovascular: Regular rate, Regular Rhythm, Normal S1, Normal S2, No murmurs Abdomen: Bowel Sounds Present, Soft, Non Tender, Non-Distended : No renal angle tenderness. No suprapubic tenderness. Extremities: No edema, Capillary Refill Less than 3 Seconds Skin: No rashes, No breakdown Musculoskeletal: No Tenderness to Palpation of Joints or Extremities Neurological: Cranial nerves II-XII grossly intact, DTR 2+/4 and Symmetrical, Neuro grossly intact Psych/Mental Status: Normal Affect, Appropriate. Weight / BMI Weight Weight: 265 lb 4.8 oz Body Mass Index (BMI) 39.2 ABG / Lab / Microbiology Data Result Diagrams: 12/26/21 16:30 12/26/21 16:30 Laboratory: Laboratory Results - last 24 hr 12/26/21 16:30: WBC 7.5, RBC 4.74, Hgb 14.6, Hct 41.9, MCV 88.4, MCH 30.8, MCHC 34.8, RDW Std Deviation 40.7, RDW Coeff of Hermilo 12.5, Plt Count 237, MPV 10.6, Immature Gran % (Auto) 0.700, Neut % (Auto) 54.3, Lymph % (Auto) 36.6, [place] % (Auto) 6.9, Eos % (Auto) 0.8, Baso % (Auto) 0.7, Absolute Neuts (auto) 4.1, Absolute Lymphs (auto) 2.75, Nucleated RBC % 0 12/26/21 16:30: D-Dimer Quant (PE/DVT) < 0.27 L 12/26/21 16:30: Sodium 140, Potassium 3.7, Chloride 108 H, Carbon Dioxide 24.0, Anion Gap 8, BUN 10, Creatinine 0.95, Estim Creat Clear Calc 80.62, Est GFR (MDRD) Af Amer 103, Est GFR (MDRD) Non-Af 85, BUN/Creatinine Ratio 10.5, Glucose 231 H, Calcium 9.1, Troponin I High Sens 6 12/26/21 19:18: Troponin I High Sens 6 12/26/21 22:09: POC Glucose 112 H 12/26/21 22:20: Troponin I High Sens 8 12/27/21 06:23: POC Glucose 138 H 12/27/21 11:11: POC Glucose 172 H Microbiology: Microbiology 12/26/21 16:20 Nasal Secretion SARS-CoV-2 Antigen (Rapid) - Final Radiography Diagnostic Testing: Radiology Impression Chest X-Ray 12/26/21 16:40 IMPRESSION: Normal x-ray examination of the chest. Electronically Signed: Elliott Rosas MD at 17:03 EDT Reading Location ID and State: [address] [place] [address] , Service support , D/C Instructions Discharge Diet: Low fat / Low cholesterol, 1800 Calorie Control Diet and 2000 mg Sodium Diet Weight Bearing Status: Weight bearing as tolerated Call your doctor if you observe: Fever of 101 or Higher, Coldness, Increased Pain, Numbness or Tingling, Change in Color, Inability to urinate, Inability to have a bowel movement, Shortness of breath, Dizziness, Fainting spells, Swelling in the ankles, Chest pain, Prolonged hiccupping, Increased palpitations (irregular heartbeat) and Calf discomfort Meaningful Use Info Meaningful Use Diagnoses (Choose all that apply): None applicable Discharge Plan Admission Admit Date/Time: 12/26/21 17:47 Primary Reason for Your Visit: Atypical chest pain, A. fib Attending Provider: Rafita Gonzalez Primary Care Provider: Himanshu Lopez Consulting Providers: Ema Mead Discharge Orders/Prescriptions Prescriptions: Continued metformin 1,000 mg tablet 1,000 mg PO BID flecainide 150 mg tablet 150 mg PO Q12H Qty: 180 3RF pantoprazole 20 MG tablet 20 mg PO DAILY alprazolam 0.5 mg tablet 0.5 mg PO DAILY@2200 PRN (Reason: Insomnia) Label Comments: Take 1-2 tablets twice a day as needed for sleep/panic metoprolol tartrate 50 mg tablet 75 mg PO BID Changed losartan 25 mg tablet 25 mg PO DAILY Qty: 30 0RF Rx Instructions: Hold for SBP less than 130 mmHg Held amlodipine 5 mg tablet 5 mg PO DAILY Qty: 30 11RF Hold Instructions: Hold for systolic blood pressure less than 130 mmHg for 3 days. Follow with PCP Discontinued nabumetone 750 mg tablet 750 mg PO DAILY PRN (Reason: pain) Referrals / Follow Up: Himanshu Lopez MD [Primary Care Provider] - Disposition Disposition (needs filled in before D/C Order can be placed): Home, Self Care Charges/Coding Visit Charges OBSV E&M: 49399 Observation care discharge
== END 2021-12-27 13:20 | disposition home or self-care (01) ==
LOC: ED 17:38 → PCU 18:13
PROVIDERS: Admitting Provider Student in an Organized Health Care Education/Training Program; Emergency Provider Emergency Medicine; PCP Family Medicine; Visit Provider Internal Medicine
DX: R07.89 Other chest pain (principal); I48.0 Paroxysmal atrial fibrillation; E11.9 Type 2 diabetes mellitus without complications; I10 Essential (primary) hypertension; E78.5 Hyperlipidemia, unspecified; I25.10 Atherosclerotic heart disease of native coronary artery without angina pectoris; I45.2 Bifascicular block; I49.3 Ventricular premature depolarization; Z87.891 Personal history of nicotine dependence; Z79.84 Long term (current) use of oral hypoglycemic drugs; Z20.822 Contact with and (suspected) exposure to COVID-19; E66.9 Obesity, unspecified; Z68.39 Body mass index [BMI] 39.0-39.9, adult; Z79.899 Other long term (current) drug therapy
CPT/HCPCS: 36415; 71045; 78452; 80048; 82962; 84484; 85025; 85379; 87811; 93005; 93017; 96360; 96361; 99218; 99285; A9500; J7030; A4216; G0378; J2785

== ENCOUNTER → 2022-08-22 | Outpatient (CLI) | payer MEDICARE, SELFPAY ==
--- NOTE | 2022-08-22 | ASPOS_PTH ---
PATIENT: IRINA SALGADO LOC: [facility] U#:[id number] AGE/SX: 62/M ROOM: RE08/22/[address]: Dr. Richar Bishop MD : 1960 BED: DIS: 08/22/2022 SPEC #: [id number] RECD: 08/22/22 10:00 STATUS: TRE CRAIG #: [id number] CLEMENTE: 08/22/22 00:[address]: Richar Bishop DEPT: CYTOLOGY RECD BY: Rosie Garcia ENTERED: 08/22/22 11:09 SP TYPE: ASP HERE OTHR DR: Dr. Himanshu Sandoval, DO Tissues: Neck, NOS Procedures: Surgery Specimen Level IV Cytology Other Fine Needle Asp on Site HEADER OPERATION: Right neck mass, fine needle aspiration PRE-OP DIAGNOSIS: Right neck mass TISSUE SUBMITTED: Right neck mass DIAGNOSIS CYTOLOGY Fine needle aspiration, right neck mass (smears and cell block): Mature adipose tissue consistent with lipoma. AM:adán 08/23/2022 COMMENT The specimen is evaluated at the time of FNA by Dr. Vargas. Immediate Evaluation = Mature adipose tissue consistent with lipoma. CYTOLOGY STUDY Slides are reviewed. CYTOLOGY GROSS Received is 0.2 ml of slightly cloudy leo material labeled with the patient's name, and designated right neck mass. Five imprints and two paps are made from the submitted fluid and the rest is added to CytoLyt for cell block preparation. Submitted for cytology study. / AM:adán 08/22/2022 TC:5 CPT: 10520, 68671, 33465, 09937
== END | disposition home or self-care (01) ==
LOC: LAB 09:22
PROVIDERS: Referring Provider Otolaryngology; Visit Provider Otolaryngology
DX: R22.1 Localized swelling, mass and lump, neck (principal)
CPT/HCPCS: 10021; 88161; 88305

== ENCOUNTER → 2022-08-30 | Outpatient (CLI) | payer MEDICARE, SELFPAY ==
--- NOTE | 2022-08-30 14:15 | CT_ITS ---
EXAM: CT NECK WITH INTRAVENOUS CONTRAST CLINICAL INDICATION: MASS TECHNIQUE: Helically acquired images were obtained of the neck with intravenous contrast. This CT exam was performed using one or more of the following dose reduction techniques: automated exposure control, adjustment of the mA and/or kV according to patient size, and/or use of iterative reconstruction technique. This report was created using [employer] report generation technology. CONTRAST: IV 75mL [id number] COMPARISON: None. FINDINGS: NASOPHARYNX: Unremarkable. SUPRAHYOID NECK: Unremarkable. Oropharynx, oral cavity, parapharyngeal space and retropharyngeal space are unremarkable. INFRAHYOID NECK: Unremarkable. The larynx, hypopharynx and supraglottis are unremarkable. SUBMANDIBULAR/PAROTID GLANDS: Unremarkable. Glands are normal in size. THYROID: Unremarkable. No enlarged or calcified nodules. BONES/JOINTS: No acute fracture. SOFT TISSUES: Unremarkable. VASCULATURE: No acute findings. LYMPH NODES: Unremarkable. No lymphadenopathy. LUNG APICES: Unremarkable as visualized. CT/Soft Tissue Neck WITH Contrast IMPRESSION: Normal neck CT. Electronically Signed: Reece Swann MD at 19:13 EDT ,
[2022-08-30 14:51] LABS: EGFR FINGERSTICK > 60.0000 mL/min (>60)
== END | disposition home or self-care (01) ==
LOC: CT 14:12
PROVIDERS: Referring Provider Otolaryngology; Visit Provider Otolaryngology
DX: R22.0 Localized swelling, mass and lump, head (principal)
CPT/HCPCS: 70491; Q9967

== ENCOUNTER → 2022-11-28 | Outpatient (CLI) | payer MEDICARE, SELFPAY | END | disposition home or self-care (01) | LOC: PSN 09:15 | PROVIDERS: Referring Provider Nurse Practitioner Family; Visit Provider Nurse Practitioner Family | DX: R00.1 Bradycardia, unspecified (principal); I48.0 Paroxysmal atrial fibrillation; I45.10 Unspecified right bundle-branch block; I10 Essential (primary) hypertension | CPT/HCPCS: 93225; 93226 ==